=== PATIENT | female | born 1980 | race Caucasian/White ===

== ENCOUNTER → 2019-05-03 11:09 | Outpatient (CLI) | payer MEDICAID, SELFPAY ==
--- NOTE | 2019-05-03 11:27 | XR_ITS ---
XR abdomen min 2V HISTORY: ITS.REASON: pain ORDERING PHYSICIAN: Chanel Tripathi APRN PATIENT AGE: 38 years COMPARISON: None FINDINGS: Mild amount of retained colonic feces. No evidence of intestinal obstruction or free air. Mild levoscoliosis of the lumbar spine. No obvious renal calcifications. IMPRESSION: Mild amount of retained colonic feces otherwise negative
[2019-05-03 11:56] LABS: Basophils # 0.1 K/mm3 (0-0.2); Basophils % 1.3 % (0.1-2.0); Eosinophils # 0.1 K/mm3 (0.0-0.4); Eosinophils % 2.5 % (0.1-12.0); Hematocrit 41.2 % (37.0-47.0); Hemoglobin 12.8 g/dL (12.2-16.2); Lymphocytes # 1.4 K/mm3 (0.7-4.5); Lymphocytes % 32.6 % (10-50); Mean Corpuscular Hemoglobin 23.9 pg (27.0-31.2); Mean Corpuscular Volume 77.2 fl (81-99); Mean Platelet Volume 11.3 fl (7.4-10.4); Monocytes # 0.2 K/mm3 (0.1-1.0); Monocytes % 4.3 % (1.7-9.3); Neutrophils # 2.6 K/mm3 (1.8-7.8); Neutrophils % 59.3 % (37.0-80.0); Platelet Count 180 K/mm3 (142-424); Red Blood Count 5.34 M/mm3 (4.20-5.40); Red Cell Distribution Width 17.5 % (11.5-17.5); White Blood Count 4.3 K/mm3 (4.8-10.8)
[2019-05-03 12:34] LABS: Alanine Aminotransferase 24 U/L (12-78); Albumin Level 4.4 gm/dL (3.4-5.0); Albumin/Globulin Ratio 1.3 (1.1-1.8); Alkaline Phosphatase 55 U/L (46-116); Amylase 56 U/L (25-115); Anion Gap 11.9 mEq/L (5-15); Aspartate Amino Transferase 9 U/L (15-37); Bilirubin,Total 0.4 mg/dL (0.2-1.0); Blood Urea Nitrogen 12 mg/dL (7-18); C-Reactive Protein < 0.2 mg/dL (0.0-0.9); Carbon Dioxide 29 mmol/L (21.0-32.0); Chloride 101 mmol/L (98-107); Chol/HDL Ratio 3.6 (1-3.5); Cholesterol 182 mg/dL (140-200); Creatinine,Serum 0.96 mg/dL (0.55-1.02); Estimated Glomerular Filt Rate 65 ml/min (>60); GFR (African American) 78 ML/MIN (>60); Globulin 3.4 gm/dl (1.3-3.2); Glucose 88 mg/dL (74-106); HDL Cholesterol 51 mg/dL (29-89); LDL Cholesterol 113 mg/dL (0-130); Lipase 163 u/L (73-393); Potassium 3.9 mmoL/L (3.5-5.1); Sodium 138 mmol/L (136-145); T4 (Thyroxine) 7.1 ug/dl (4.7-13.3); Thyroid Stimulating Hormone 15.97 uIU/ml (0.358-3.740); Total Protein,Serum 7.8 gm/dL (6.4-8.2); Triglycerides 92 mg/dL (30-200); VLDL Cholesterol 18 mg/dL (0-40)
[2019-05-03 13:06] LABS: Erythrocyte Sedimentation Rate 5 mm/hr (0-20)
[2019-05-04 13:19] LABS: Vitamin B12 555 pg/mL (232-1245)
[2019-05-04 13:20] LABS: Folate 10.3 ng/mL (>3.0); Vitamin D 25 Hydroxy 15.9 ng/mL (30.0-100.0)
== END ==
PROVIDERS: Visit Provider Nurse Practitioner Family
DX: R11.2 Nausea with vomiting, unspecified (principal); R13.10 Dysphagia, unspecified; R52 Pain, unspecified; E55.9 Vitamin D deficiency, unspecified
CPT/HCPCS: 36415; 74019; 80053; 80061; 82150; 82607; 82652; 82746; 83690; 84436; 84443; 85025; 85651; 86140

== ENCOUNTER → 2019-05-26 08:56 | Outpatient (CLI) | payer MEDICAID, SELFPAY ==
--- NOTE | 2019-05-26 09:05 | FL_ITS ---
PROCEDURE: FL BARIUM SWALLOW CLINICAL INDICATION: dysphagia history of previous thyroidectomy 2016 COMPARISON: No exams were available for comparison TECHNIQUE: In the upright position the patient was observed to swallow barium in both the AP and lateral view. The cervical esophagus was examined under fluoroscopy with images obtained. The patient was then placed prone in the right anterior oblique position and was observed to swallow barium with Valsalva technique . FLUOROSCOPY TIME: 2 minutes 26 seconds, the dose is 28.50 mGy FINDINGS: Fluoroscopy prior to swallowing barium shows multiple too numerous to count surgical clips in the thyroid bed. Spot films of the cervical esophagus was swelling show no abnormal anterior or posterior indentation of the barium column. There is no significant degenerative change of the cervical spine. Otherwise esophageal motility was normal. There was a small sliding hiatal hernia but there was no significant GE reflux with the patient in supine position. IMPRESSION: Multiple surgical clips just anterior to the cervical esophagus which could possibly be a cause for symptoms of dysphagia particularly with solid foods but as mentioned there is no significant abnormal indentation of the cervical esophagus and a soft motility is essentially normal. Dictated by: Dr. Thang Jones MD 05/26/2019 11:17 Signed by: <Electronically signed by Dr. Thang Jones MD in [facility]> 05/26/2019 11:17
== END ==
PROVIDERS: PCP Emergency Medicine; Visit Provider Nurse Practitioner Family
DX: R13.10 Dysphagia, unspecified (principal)
CPT/HCPCS: 74220

== ENCOUNTER 2021-01-14 16:05 | Outpatient (RCR) | payer MEDICAID, SELFPAY ==
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
== END 2021-01-14 16:10 | disposition home or self-care (01) ==
LOC: PT 16:05
PROVIDERS: PCP Emergency Medicine; Visit Provider Emergency Medicine
DX: M54.9 Dorsalgia, unspecified (principal); M54.5 Low back pain
CPT/HCPCS: 97163

== ENCOUNTER 2022-06-01 12:29 | Emergency (ER) | payer MEDICAID, SELFPAY ==
[2022-06-01 14:49] VITALS: BP 0/0; PULSE 0; RESP 0; TEMP -17.7; TEMP 0
== END 2022-06-01 14:51 | disposition left against medical advice (07) ==
LOC: UTC 12:42
PROVIDERS: Emergency Provider Nurse Practitioner; PCP Emergency Medicine
DX: R51.9 Headache, unspecified (principal); R11.0 Nausea; R68.83 Chills (without fever); Z53.21 Procedure and treatment not carried out due to patient leaving prior to being seen by health care provider

== ENCOUNTER → 2022-06-04 11:56 | Outpatient (CLI) | payer MEDICAID, SELFPAY | PROVIDERS: PCP Emergency Medicine; Visit Provider Emergency Medicine | DX: U07.1 COVID-19 (principal) | CPT/HCPCS: C9803; U0003; U0005 ==

== ENCOUNTER 2023-10-07 19:15 | Inpatient (IN) | payer MEDICAID, SELFPAY ==
[2023-10-07 19:15] VITALS: BP 173/101; PULSE 70; RESP 20; TEMP 36.7; O2SAT 100; BMI 13.8
--- NOTE | 2023-10-07 19:17 | ECG_ITS ---
APPROVED REPORT Exam: Resting ECG HR:69 bpm ECG Measurements Heart Rate 69 AXES IL 184 P -74 QRSd 102 QRS 92 QT 435 T 69 QTc 454 Conclusion SINUS RHYTHM BORDERLINE RIGHT AXIS DEVIATION [QRS AXIS > 90] MODERATE T-WAVE ABNORMALITY, CONSIDER ANTERIOR ISCHEMIA [-0.1+ mV T-WAVE IN V3/V4] ABNORMAL ECG UNCONFIRMED REPORT Electronically signed by : Chilo Vasquez MD 10/09/2023 10:09:32
--- NOTE | 2023-10-07 19:23 | CT_ITS ---
PROCEDURE INFORMATION: Exam: CTA Chest With Contrast Exam date and time: 10/07/2023 8:28 PM Age: 42 years old Clinical indication: Pain; Chest pressure; Additional info: Left leg swelling, chest pain TECHNIQUE: Imaging protocol: Computed tomographic angiography of the chest with contrast. Exam focused on the arteries. 3D rendering (Not supervised by radiologist): MIP and/or 3D reconstructed images were created by the technologist. Radiation optimization: All CT scans at this facility use at least one of these dose optimization techniques: automated exposure control; mA and/or kV adjustment per patient size (includes targeted exams where dose is matched to clinical indication); or iterative reconstruction. Contrast material: ISOVUE; Contrast volume: 75 ml; Contrast route: INTRAVENOUS (IV); COMPARISON: CT ABDOMEN PELVIS W CON 10/07/2023 8:28 PM FINDINGS: Pulmonary arteries: Normal. No pulmonary emboli. Aorta: Unremarkable. No aortic aneurysm. No aortic dissection. Thyroid: Evidence of prior thyroidectomy. Lungs: Unremarkable. No consolidation. No masses. Pleural spaces: Unremarkable. No pneumothorax. No pleural effusion. Heart: Unremarkable. No cardiomegaly. No pericardial effusion. Lymph nodes: Unremarkable. No enlarged lymph nodes. Bones/joints: Mild dextroscoliosis of the thoracic spine. No vertebral body compression or acute fracture. Soft tissues: Unremarkable. IMPRESSION: No evidence of pulmonary embolus or other acute abnormality in the chest.
--- NOTE | 2023-10-07 19:24 | CT_ITS ---
PROCEDURE INFORMATION: Exam: CT Abdomen And Pelvis With Contrast Exam date and time: 10/07/2023 8:28 PM Age: 42 years old Clinical indication: Abdominal pain; Additional info: Rlq abd pain TECHNIQUE: Imaging protocol: Computed tomography of the abdomen and pelvis with contrast. Radiation optimization: All CT scans at this facility use at least one of these dose optimization techniques: automated exposure control; mA and/or kV adjustment per patient size (includes targeted exams where dose is matched to clinical indication); or iterative reconstruction. Contrast material: ISOVUE; Contrast volume: 75 ml; Contrast route: IV; COMPARISON: CR (ABD UPRIGHT, ABDOMEN, ABD UPRIGHT) 05/03/2019 11:30 AM FINDINGS: Liver: Focal fatty infiltration in the lateral segment of the left lobe of the liver. Liver is otherwise unremarkable. Gallbladder and bile ducts: Normal. No calcified stones. No ductal dilation. Pancreas: Diffuse peripancreatic fluid compatible with acute pancreatitis. Normal pancreatic enhancement. No loculated fluid collections. Spleen: Normal. No splenomegaly. Adrenal glands: Normal. No mass. Kidneys and ureters: Normal. No hydronephrosis. Stomach and bowel: Unremarkable. No obstruction. No mucosal thickening. Appendix: No evidence of appendicitis. Intraperitoneal space: No other significant free fluid in the abdomen or pelvis. No free air. Vasculature: Unremarkable. No abdominal aortic aneurysm. Lymph nodes: Unremarkable. No enlarged lymph nodes. Urinary bladder: Unremarkable as visualized. Reproductive: Unremarkable as visualized. Bones/joints: Moderate levoscoliosis of the thoracolumbar spine. No vertebral body compression or acute fracture. Soft tissues: Unremarkable. IMPRESSION: Uncomplicated acute pancreatitis
--- NOTE | 2023-10-07 19:25 | ED_ITS ---
Discharge Plan Disposition Patient Disposition: Admitted Prescriptions Prescriptions: No Action buprenorphine-naloxone 8-2 mg tablet, sublingual 1 tab SUBLINGUAL BID ergocalciferol (vitamin D2) 1,250 mcg (50,000 unit) capsule 50,000 unit PO QWEEK Qty: 14 3RF nicotine 21 mg/24 hr patch 24 hour 1 patch TRANSDERMA DAILY Qty: 28 0RF lidocaine 4 % adhesive patch,medicated 1 patch TOPICAL DAILY PRN (Reason: pain) Qty: 30 0RF Rx Instructions: may leave on for up to 12 hrs diclofenac sodium [Arthritis Pain (diclofenac)] 1 % gel 2 g TOPICAL QID Qty: 100 0RF Rx Instructions: apply to single elbow, wrist or hand; for hand includes palm/fingers/back of hand cholecalciferol (vitamin D3) 25 mcg (1,000 unit) capsule 25 mcg PO DAILY Qty: 90 3RF cholecalciferol (vitamin D3) 25 mcg (1,000 unit) tablet See Rx Instructions .ROUTE .COMPLEX Qty: 30 0RF Dose Instruction: TAKE ONE TABLET BY MOUTH ONCE A DAY Rx Instructions: TAKE ONE TABLET BY MOUTH ONCE A DAY patient needs an appt before anymore refills quetiapine 50 mg tablet See Rx Instructions .ROUTE .COMPLEX Qty: 60 0RF Dose Instruction: TAKE ONE TABLET BY MOUTH 2 TIMES A DAY Rx Instructions: TAKE ONE TABLET BY MOUTH 2 TIMES A DAY duloxetine 20 mg capsule,delayed release(DR/EC) See Rx Instructions .ROUTE .COMPLEX Qty: 30 0RF Dose Instruction: TAKE ONE CAPSULE BY MOUTH ONCE A DAY Rx Instructions: TAKE ONE CAPSULE BY MOUTH ONCE A DAY pantoprazole 40 mg tablet,delayed release (DR/EC) See Rx Instructions .ROUTE .COMPLEX Qty: 30 0RF Dose Instruction: TAKE ONE TABLET BY MOUTH ONCE A DAY Rx Instructions: TAKE ONE TABLET BY MOUTH ONCE A DAY levothyroxine 125 mcg tablet See Rx Instructions .ROUTE .COMPLEX Qty: 90 3RF Dose Instruction: TAKE ONE TABLET BY MOUTH ONCE A DAY Rx Instructions: TAKE ONE TABLET BY MOUTH ONCE A DAY Referrals Follow up/Referrals: Provider,Referral, [Referring] - See instructions Clinical Impressions Clinical Impression: Acute alcoholic pancreatitis, Chest pain, Abdominal pain, Cellulitis of left leg Discharge ED Provider: Sukhwinder Munguia General Adult HPI General Chief complaint: PAIN Stated complaint: CP Time Seen by Provider: 10/07/23 19:23 History of Present Illness HPI narrative: Patient is a 42-year-old presenting today with numerous complaints. Patient states he has been having chest pain has been ongoing for the last 13 hours unchanged located in substernal aspect of her chest radiating through to her back. Nonexertional no diaphoresis associated with this however she is short of breath. Additionally patient states has been having intermittent abdominal pain that severe right lower quadrant she has a history of having extensive surgery on the right lower quadrant including bowel resection appendectomy oophorectomy and salpingectomy that was a complication of a section in 2013 when she was having her twins. Additionally she states she is having significant urinary symptoms burning frequency urgency dysuria. She also states she has been having left lower leg swelling and erythema associated with the wound for the last 2 weeks. No history of DVT or PE. Lastly she has a known history of chronic HCV that has been untreated she is not sure if she still viremic but has not taken any direct acting antivirals for this treatment. She states that she got this from a tattoo in the past. She is unsure as to whether or not she has cirrhosis. Related Data Home Medications Medication Instructions Recorded Confirmed buprenorphine 8 mg-naloxone 2 mg 1 tab sublingual BID 12/30/20 12/30/20 sublingual tablet Previous Rx's Medication Instructions Recorded diclofenac sodium 1 % topical gel 2 g topical QID #100 grams 12/30/20 (Arthritis Pain (diclofenac)) ergocalciferol (vitamin D2) 1,250 50,000 unit PO QWEEK #14 caps 12/30/20 mcg (50,000 unit) capsule lidocaine 4 % topical patch 1 patch topical DAILY PRN pain #30 12/30/20 ea nicotine 21 mg/24 hr daily 1 patch transdermal DAILY #28 ea 12/30/20 transdermal patch cholecalciferol (vitamin D3) 25 25 mcg PO DAILY #90 caps 11/17/21 mcg (1,000 unit) capsule cholecalciferol (vitamin D3) 25 See Rx Instructions .Route 11/18/21 mcg (1,000 unit) tablet .COMPLEX #30 tabs duloxetine 20 mg capsule,delayed See Rx Instructions .Route 01/07/22 release .COMPLEX #30 caps quetiapine 50 mg tablet See Rx Instructions .Route 01/07/22 .COMPLEX #60 tabs pantoprazole 40 mg tablet,delayed See Rx Instructions .Route 06/01/22 release .COMPLEX #30 tabs levothyroxine 125 mcg tablet See Rx Instructions .Route 04/15/23 .COMPLEX #90 tabs Allergies Allergy/AdvReac Type Severity Reaction Status Date / Time codeine Allergy Mild jitters Verified 12/30/20 16:31 NSAIDS (Non-Steroidal Allergy Mild Hives Verified 12/30/20 16:31 Anti-Inflamma [facility] Disclaimer: The information contained in this section may have been updated after the p atient was seen, as this information can be updated by other users. Social History Smoking Status: Current every day smoker tobacco type: cigarettes packs per day: 1 alcohol intake: never substance use type: denies use current occupational status: unemployed Travel in the last 8 weeks: None household members: family ROS Obtained: Yes All systems reviewed & no additional complaints except as documented Physical Exam General General appearance: alert Chest Chest inspection: Present normal inspection and symmetric chest wall rise Respiratory Respiratory exam: Present normal lung sounds bilaterally; Absent respiratory distress Cardiovascular Cardiovascular exam: Present regular rate; Absent tachycardia Abdominal Exam Abdominal exam: Present soft and tenderness (Right lower quadrant tenderness palpation there is some rebound and guarding) Extremities Exam Extremities exam: Present other (There is a clotted wound on the anterior aspect of the left tibia with surrounding swelling and erythema and tenderness) Neurological Exam Neurological exam: Present alert and oriented X3 Medical Decision Making Brandan Inquiry Pt receiving controlled substance: No Vital Signs: 10/07/23 19:15 10/07/23 19:32 10/07/23 20:01 Temperature 98.1 F Temperature Source Oral Pulse Rate 61 52 L Pulse Rate [Right Brachial] 70 Respiratory Rate 20 12 Blood Pressure 160/142 H 167/89 H Blood Pressure [Right Arm] 173/101 H Blood Pressure Mean [Right Arm] 125 Blood Pressure Source [Right Arm] Automatic Cuff Blood Pressure Position [Right Arm] Supine 02 Sat by Pulse Oximetry 100 100 95 Oxygen Delivery Method Room Air Lab Data Lab results reviewed: Yes I reviewed the patient's lab results. Lab Results 10/07/23 19:26: PT 11.8, INR 1.10, D-Dimer 0.65 H, Sodium 134 L, Potassium 3.8, Chloride 96 L, Carbon Dioxide 23, Anion Gap 18.8 H, BUN 4 L, Creatinine 0.50 L, Estimated Creat Clear 128, Estimated GFR 135, Est GFR ( Amer) 163, G lucose 183 H, Calcium 9.0, Total Bilirubin 1.2, AST 86 H, ALT 59, Alkaline Phosphatase 126, Troponin I 0.02, Total Protein 8.0, Albumin 4.9, Globulin 3.1, Albumin/Globulin Ratio 1.6, Lipase 3855 H, Serum HCG, Qual Negative 10/07/23 20:15: WBC 9.0, RBC 4.88, Hgb 15.5, Hct 46.3, MCV 94.9, MCH 31.8 H, MCHC 33.5, RDW 17.3, Plt Count 173, MPV 9.4, Neut % (Auto) 93.6 H, Lymph % (Auto) 2.9 L, [place] % (Auto) 2.6, Eos % (Auto) 0.7, Baso % (Auto) 0.2, Neut # (Auto) 8.4 H, Lymph # (Auto) 0.3 L, Dewitt # (Auto) 0.2, Eos # (Auto) 0.1, Baso # (Auto) 0.0, Total Counted 100, Neutrophils % (Manual) 98 H, Lymphocytes % (Manual) 1 L, Monocytes % (Manual) 1 L, Platelet Estimate Normal, RBC Morphology Normal 10/07/23 21:18: Urine Color Yellow, Urine Appearance Clear, Urine pH 7.5, Ur Specific [place] 1.010, Urine Protein Negative, Urine Glucose (UA) 1+, Urine Ketones Trace, Urine Blood Trace-i, Urine Nitrate Positive, Urine Bilirubin Negative, Urine Urobilinogen 0.2, Ur Leukocyte Esterase Negative 10/07/23 20:15 10/07/23 19:26 Orders (Tests/Meds): ED MEDICATIONS Generic Name Dose Route Start Last Admin Trade Name Freq PRN Reason Stop Dose Admin Cephalexin HCl 500 mg 10/07/23 21:37 Cephalexin 500mg Capsule PO 10/07/23 21:38 ONCE ONE Sodium Chloride 10 ml 10/07/23 20:33 10/07/23 20:34 Sodium Chloride 0.9% 10ml Syr (Rad Only) IV 11/06/23 20:32 10 ml NEEDED PRN Administration Maintain IV Site Discontinued Medications Generic Name Dose Route Start Last Admin Trade Name Freq PRN Reason Stop Dose Admin Lactated Ringer's 1,000 mls @ 999 mls/hr 10/07/23 19:30 10/07/23 20:16 Lactated Ringer's 1000 Ml Bag IV 10/07/23 20:30 999 mls/hr .Q1H1M VU Administration Iopamidol 75 ml 10/07/23 20:33 10/07/23 20:33 Iopamidol-370 (76%);100ml Bottle IV 10/07/23 20:34 75 ml ONCE ONE Administration Morphine Sulfate 4 mg 10/07/23 19:23 10/07/23 20:16 Morphine 4mg/Ml Syringe IV 10/07/23 19:24 4 mg ONCE ONE Administration Ondansetron HCl 4 mg 10/07/23 19:23 10/07/23 20:15 Ondansetron 4mg/2ml Vial IV 10/07/23 19:24 4 mg ONCE ONE Administration ORDERS Category Date Time Status CT abdomen pelvis w con Stat Cat Scan 10/07/23 19:[address] angio chest PE protocol Stat Cat Scan 10/07/23 19:23 Completed CBC w/Auto Diff [Complete Blood Count Auto Diff] Stat Lab 10/07/23 20:15 Completed CMP [Comprehensive Metabolic Panel] Stat Lab 10/07/23 19:26 Completed D-Dimer Stat Lab 10/07/23 19:26 Completed HCG Qualitative, Serum Stat Lab 10/07/23 19:26 Completed HCV RNA PCR, Quant Stat Lab 10/07/23 20:42 Received Lipase Stat Lab 10/07/23 19:26 Completed PT INR [Prothrombin Time INR] Stat Lab 10/07/23 19:26 Completed Trop I [Troponin I] Stat Lab 10/07/23 19:26 Completed Troponin I Q3H Lab 10/07/23 22:30 Ordered Troponin I Q3H Lab 10/08/23 01:30 Ordered UA [Urinalysis and Microscopic] Stat Lab 10/07/23 21:18 Results Medical Decision Narrative: Patient is a 42-year-old presenting today with numerous complaints including chest pain shortness of breath abdominal pain urinary symptoms lower extremity swelling diarrhea and has a history of chronically untreated viremia. Differential is very broad including myocardial injury myocardial infarction pneumonia pulmonary embolism abdominal pathology such as bowel obstruction urinary tract infection DVT PE etc. Will get a CT PE and and CT of the abdomen pelvis as well as basic blood test a single troponin will be used to rule out acute myocardial infarction or ACS given the duration of symptoms. Regarding her left lower extremity erythema and swelling this is consistent with ce llulitis unlikely to be a DVT will cover her with antibiotics if everything else unremarkable. HCVRNA has been sent and we will follow-up on this to see the patient is still chronically viremic and needs treatment. EKG performed which I personally interpreted shows a ventricular rate of 69 normal sinus rhythm no acute ischemic changes noted however there are some anterior T wave inversions which are nonspecific no ST elevations or depressions there is normal axis nonspecific emergency EKG. Reassessment 9:38 PM patient is very broad workup yielded a lipase over 3000 CT scans performed which also did not show any alternative explanation other than uncomplicated pancreatitis. This explains the vast majority the patient's symptoms. She was given a dose of Keflex for her lower extremity cellulitis as well. I went and discussed this further with the patient and she subsequently admitted to drinking a pint of fireball liquor on a daily basis over the last year up until 2 days ago when she started feeling sick. She currently has a CIWA score of 0 no evidence of any withdrawal at the moment. However this is a concern. She will be admitted for pain control bowel rest IV fluids etc. I spoke with Jozef with hospital medicine who agreed to admit the patient. Critical Care Critical Care Time Critical Care Time: No
[2023-10-07 19:32] VITALS: BP 160/142; PULSE 61; O2SAT 100
[2023-10-07 19:48] LABS: Prothrombin Time 11.8 seconds (10.1-12.5)
[2023-10-07 19:57] LABS: Chloride 96 mmol/L (98-107); Potassium 3.8 mmoL/L (3.5-5.1); Sodium 134 mmol/L (136-145)
[2023-10-07 20:00] LABS: Alanine Aminotransferase 59 U/L (12-78); Albumin Level 4.9 g/dl (3.5-5.0); Albumin/Globulin Ratio 1.6 (1.1-1.8); Alkaline Phosphatase 126 U/L (38-126); Anion Gap 18.8 mEq/L (5-15); Aspartate Amino Transferase 86 U/L (14-36); Bilirubin,Total 1.2 mg/dl (0.2-1.3); Blood Urea Nitrogen 4 mg/dl (7-17); Carbon Dioxide 23 mmol/L (22.0-30.0); Creatinine Clearance Estimated 128 mL/min (50-200); Estimated Glomerular Filt Rate 135 ml/min (>60); GFR (African American) 163 ML/MIN (>60); Globulin 3.1 g/dL (1.3-3.2)
[2023-10-07 20:01] VITALS: BP 167/89; PULSE 52; RESP 12; O2SAT 95
[2023-10-07 20:01] LABS: Glucose 183 mg/dl (74-100)
[2023-10-07 20:12] LABS: Troponin I 0.02 ng/ml (0.00-0.034)
[2023-10-07] MEDS: ONDANSETRON 4MG/2ML VIAL 4 MG IV (20:15)
[2023-10-07] MEDS: LACTATED RINGERS 1000ML 1,000 ML 999 ML IV (20:16)
[2023-10-07] MEDS: MORPHINE 4MG/ML SYRINGE 4 MG IV ×2 (20:16→23:06)
[2023-10-07 20:20] LABS: Basophils % 0.2 % (0.1-2.0); Eosinophils # 0.1 K/mm3 (0.0-0.4); Eosinophils % 0.7 % (0.1-12.0); Hematocrit 46.3 % (37.0-47.0); Hemoglobin 15.5 g/dL (12.2-16.2); Lymphocytes # 0.3 K/mm3 (0.7-4.5); Lymphocytes % 2.9 % (10-50); Mean Corpuscular HGB Conc 33.5 g/dL (31.8-35.4); Mean Corpuscular Hemoglobin 31.8 pg (27.0-31.2); Mean Corpuscular Volume 94.9 fl (81-99); Mean Platelet Volume 9.4 fl (7.4-10.4); Monocytes # 0.2 K/mm3 (0.1-1.0); Monocytes % 2.6 % (1.7-9.3); Neutrophils # 8.4 K/mm3 (1.8-7.8); Neutrophils % 93.6 % (37.0-80.0); Platelet Count 173 K/mm3 (142-424); Red Blood Count 4.88 M/mm3 (4.20-5.40); Red Cell Distribution Width 17.3 % (11.5-17.5)
[2023-10-07 20:20] LABS: HCG Qualitative, Serum Negative (Negative)
[2023-10-07 20:21] LABS: MANUAL DIFFERENTIAL MANUAL DIFFERENTIAL (MANUAL DIFF)
[2023-10-07 20:24] LABS: Lipase 3855 U/L (23-300)
--- NOTE | 2023-10-07 20:25 | PC.NURSE ---
Dr Munguia notified of critical lipase [id number]
[2023-10-07 20:29] LABS: Lymphocytes % 1 % (10-50); Monocytes % 1 % (2-9); Neutrophils % 98 % (42-76); Platelet Estimate Normal; RBC Morphology Normal; Total Cells Counted 100
[2023-10-07] MEDS: IOPAMIDOL-370 (76%);100ML BOTTLE 75 ML IV (20:33)
--- NOTE | 2023-10-07 20:33 | PC.NURSE ---
pt to radiology
[2023-10-07] MEDS: SODIUM CHLORIDE 0.9% 10ML SYR (RAD ONLY) 10 ML IV (20:34)
--- NOTE | 2023-10-07 20:35 | PC.NURSE ---
pt back from radiology
[2023-10-07 21:10] LABS: D-Dimer 0.65 ug/mL (0.0-0.5)
[2023-10-07 21:27] LABS: Microscopic, Urine URINE MICROSCOPIC (MICROSCOPIC)
[2023-10-07 21:28] LABS: Appearance,Urine CLEAR (Clear); Bilirubin,Urine Negative (Negative); Blood, Urine TRACE-I (Negative); Color,Urine YELLOW (Yellow); Glucose,Urine (UA) 1+ (Negative); Ketones,Urine TRACE (Negative); Leukocyte Esterase,Urine Negative (Negative); Nitrate,Urine POSITIVE (Negative); PH,Urine 7.5 (5.0-8.5); Protein,Urine Negative (Negative); Urobilinogen,Urine 0.2 EU/dl (0.2)
--- NOTE | 2023-10-07 21:37 | PC.NURSE ---
on phone with VIDA Boggs. [facility] accepted admit, House notified of Admission at this time.
--- NOTE | 2023-10-07 21:39 | P.HP_ITS ---
History of Present Illness *Admission Date: 10/07/23 *Reason for visit:: abd pain *History of present illness: This is a 42-year-old female PMHX of hypothyroidism, heavy daily drinker, chronic Hep C, presented to ED c/o abd pain, nauseas and vomit. Initially patient described also chest pain has been ongoing for the last 13 hours unchanged located in substernal aspect of her chest radiating through to her back. Nonexertional no diaphoresis associated with this however she is short of breath. Additionally patient states has been having intermittent abdominal pain that severe right lower quadrant she has a history of having extensive surgery on the right lower quadrant including bowel resection appendectomy oophorectomy and salpingectomy that was a complication of a section in 2013 when she was having her twins. Additionally she states she is having significant urinary symptoms burning frequency urgency dysuria. She also states she has been having left lower leg swelling and erythema associated with the wound for the last 2 weeks. No history of DVT or PE. Admitted for further treatment and management [facility] Disclaimer: The information contained in this section may have been updated after the patient was seen, as this information can be updated by other users. Surgical History (Updated 10/07/23 @ 22:32 by Belén Lopez RN) History of appendectomy Family History (Updated 10/07/23 @ 22:34 by Belén Lopez RN) Other Family history of diabetes mellitus Family history of hypertension Family history of hypothyroidism Social History (Updated 10/07/23 @ 22:33 by Belén Lopez RN) Smoking Status: Current every day smoker tobacco type: cigarettes packs per day: 1 alcohol intake: never substance use type: denies use current occupational status: unemployed Travel in the last 8 weeks: None household members: family Review of Systems Review of Systems Review of systems:: pertinent systems reviewed and negative unless documented below Meds Home Medications and Allergies Home Medications Medication Instructions Recorded Confirmed Type buprenorphine 8 mg-naloxone 2 mg 1 tab sublingual BID 12/30/20 10/07/23 History sublingual tablet ergocalciferol (vitamin D2) 1,250 50,000 unit PO QWEEK #14 caps 12/30/20 10/08/23 Rx mcg (50,000 unit) capsule cholecalciferol (vitamin D3) 25 25 mcg PO DAILY #90 caps 11/17/21 10/07/23 Rx mcg (1,000 unit) capsule diclofenac sodium 1 % topical gel 2 g topical QID PRN Pain 10/07/23 10/07/23 History (Arthritis Pain (diclofenac)) duloxetine 20 mg capsule,delayed 20 mg PO DAILY 10/08/23 10/08/23 History release levothyroxine 125 mcg tablet 125 mcg PO AM 10/08/23 10/08/23 History pantoprazole 40 mg tablet,delayed 40 mg PO DAILY 10/08/23 10/08/23 History release quetiapine 50 mg tablet 100 mg PO HS 10/08/23 10/08/23 History New Prescriptions to Start Prescriptions: Allergies Allergy/AdvReac Type Severity Reaction Status Date / Time codeine Allergy Mild jitters Verified 12/30/20 16:31 NSAIDS (Non-Steroidal Allergy Mild Hives Verified 12/30/20 16:31 Anti-Inflamma Exam Data for Last 24 hours Vital signs and Labs for Last 24 Hours: Temp Pulse Resp BP Pulse Ox O2 Del Method 98.1 F 52 L 12 167/89 H 95 Room Air 10/07/23 19:15 10/07/23 20:01 10/07/23 20:01 10/07/23 20:01 10/07/23 20:01 10/07/23 19:15 Laboratory Results - last 24 hr 10/07/23 19:26: PT 11.8, INR 1.10, D-Dimer 0.65 H, Sodium 134 L, Potassium 3.8, Chloride 96 L, Carbon Dioxide 23, Anion Gap 18.8 H, BUN 4 L, Creatinine 0.50 L, Estimated Creat Clear 128, Estimated GFR 135, Est GFR ( Amer) 163, Glucose 183 H, Calcium 9.0, Total Bilirubin 1.2, AST 86 H, ALT 59, Alkaline Phosphatase 126, Troponin I 0.02, Total Protein 8.0, Albumin 4.9, Globulin 3.1, Albumin/Globulin Ratio 1.6, Lipase 3855 H, Serum HCG, Qual Negative 10/07/23 20:15: WBC 9.0, RBC 4.88, Hgb 15.5, Hct 46.3, MCV 94.9, MCH 31.8 H, MCHC 33.5, RDW 17.3, Plt Count 173, MPV 9.4, Neut % (Auto) 93.6 H, Lymph % (Auto) 2.9 L, [place] % (Auto) 2.6, Eos % (Auto) 0.7, Baso % (Auto) 0.2, Neut # (Auto) 8.4 H, Lymph # (Auto) 0.3 L, [place] # (Auto) 0.2, Eos # (Auto) 0.1, Baso # (Auto) 0.0, Total Counted 100, Neutrophils % (Manual) 98 H, Lymphocytes % (Manual) 1 L, Monocytes % (Manual) 1 L, Platelet Estimate Normal, RBC Morphology Normal 10/07/23 21:18: Urine Color Yellow, Urine Appearance Clear, Urine pH 7.5, Ur Specific [place] 1.010, Urine Protein Negative, Urine Glucose (UA) 1+, Urine Ketones Trace, Urine Blood Trace-i, Urine Nitrate Positive, Urine Bilirubin Negative, Urine Urobilinogen 0.2, Ur Leukocyte Esterase Negative I & O for Last 24 hours: Intake & Output 10/04/23 10/05/23 10/06/23 10/07/23 23:59 23:59 23:59 23:59 Weight 55.792 kg Constitutional Constitutional: moderate distress, cachectic and cooperative *Routine HEENT Exam Head: Present normocephalic and atraumatic Eye: Present EOMI, PERRL and normal accommodation ENT: Present mucous membranes dry *Routine Neck Exam Neck: Present supple, full ROM and trachea midline *Routine Respiratory Exam Respiratory: Present normal respiratory effort, able to speak in complete sentences and symmetric chest movement; Absent respiratory distress *Routine Cardiovascular Exam Cardiovascular: Present RRR, Normal S1, Normal S2 and tachycardia *Routine Abdominal Exam Abdominal: Present soft, normoactive bowel sounds, tenderness, distended and guarding *Routine Rectal Exam Rectal:: deferred *Routine Genitalia Exam Genitalia:: deferred *Routine Extremities Exam Extremities: Present edema, full ROM, pulses intact and joint swelling (left ankle ); Absent cyanosis or clubbing *Routine Skin Exam Skin: Present erythema, dry and warm *Routine Neurological Exam Neurological: Present alert, oriented X3, normal reflexes, moving all extremities and normal speech Routine Psychiatric Exam Psychiatric: Present normal thought process, cooperative, good judgment and anxious H&P: Result Imaging and Cardiology CT scan - abdomen: Status: image reviewed by me, Preliminary report and final report EKG: Status: image reviewed by me and Preliminary report CT scan - chest: Status: image reviewed by me, Preliminary report and final report ankle xray : Status: image reviewed by me, Preliminary report and final report Assessment and Plan *Assessment and plan (1) Acute alcoholic pancreatitis: Status: Acute Qualifiers: Acute pancreatitis complication: unspecified Qualified Code(s): K85.20 - Alcohol induced acute pancreatitis without necrosis or infection Category: Medical Code(s): K85.20 - Alcohol induced acute pancreatitis without necrosis or infection (2) UTI (urinary tract infection): Status: Acute Qualifiers: Hematuria presence: without hematuria Urinary tract infection type: site unspecified Qualified Code(s): N39.0 - Urinary tract infection, site not specified Category: Medical Code(s): N39.0 - Urinary tract infection, site not specified (3) Chest pain: Status: Acute Qualifiers: Chest pain type: unspecified Qualified Code(s): R07.9 - Chest pain, unspecified Category: Medical Code(s): R07.9 - Chest pain, unspecified (4) Cellulitis of left leg: Status: Acute Category: Medical Code(s): L03.116 - Cellulitis of left lower limb (5) Hypothyroidism (acquired): Problem Comment: Secondary to radioactive iodine for hyperthyroidism Status: Acute Category: Medical Code(s): E03.9 - Hypothyroidism, unspecified (6) Ankle pain, left: Status: Acute Qualifiers: Chronicity: acute Qualified Code(s): M25.572 - Pain in left ankle and joints of left foot Category: Medical Code(s): M25.572 - Pain in left ankle and joints of left foot (7) Alcohol abuse: Status: Acute Category: Social Hx Code(s): F10.10 - Alcohol abuse, uncomplicated Plan 42-year-old female PMHX of hypothyroidism, heavy daily drinker, chronic Hep C, presented to ED c/o abd pain, nauseas and vomit. on arrival patient underwent on extensive work up. Including CTA of chest that ruled out PEs and any cardiac acute conditions. serial troponin and EKG negative. She also had a. CT of the pelvis and abdomen there is shows acute uncomplicated pancreatitis. Elevated lipase. UA was collected, to rule urinary tract infection. X-rays of the left ankle was obtained to rule out any fracture. Findings were discussed with the ER doctor for admission. Plan as follows: -Abdominal pain secondary to acute alcoholic pancreatitis: Admit patient to medical surgical. Dispo MedSurg Surgical consult. Appreciate their insight. Start Zosyn 4.5 g every 8h Zofran and Phenergan as needed for nausea N.p.o. may advance diet as tolerated Pain management. Morphine as needed for severe pain Repeat a monitor labs in the morning -Suspected urinary tract infection: UA showed nitrate positive, with dysuria symptoms UA culture pending -Chest pain, more likely refractory from acute pancreatitis: ACS ruled out. Troponin negative EKG negative CTA of the chest was reviewed. Negative color television console monitor Monitor for chest pain. Vital signs per unit -History of fall at home with left ankle swelling: Was initially treated for cellulitis of the left leg Continues in antibiotic treatment X-ray was obtained negative for acute fracture Pain management as well -History of alcohol abuse currently heavy drinking: Patient interested in detox program. Will refer case coordinator for further assistance CIWA Hypothyroidism Resume Synthroid 125 Lovenox for DVT prophylaxis. On Protonix for GI bleed protection Full code
[2023-10-07] MEDS: cephALEXin 500MG CAPSULE 500 MG PO (21:41)
--- NOTE | 2023-10-07 21:50 | PC.NURSE ---
report given to SHELBY Harris on second floor.
[2023-10-07 21:53] LABS: Bacteria,Urine 3+ /lpf; RBC,Urine Occasional #/hpf (0-3); Squamous Epithelial Cell,Urine Occasional #/hpf (0-5)
[2023-10-07 22:04] VITALS: BP 160/78; PULSE 78; RESP 18; TEMP 37.1; O2SAT 100
[2023-10-07 22:37] VITALS: BP 161/92; PULSE 57; RESP 18; TEMP 37.1; O2SAT 100; BMI 13.8
--- NOTE | 2023-10-07 22:39 | XR_ITS ---
PROCEDURE INFORMATION: Exam: XR Left Ankle Exam date and time: 10/07/2023 11:12 PM Age: 42 years old Clinical indication: Pain; Ankle; Left; Additional info: Pain and swollen TECHNIQUE: Imaging protocol: Radiologic exam of the left ankle. Views: 1 or 2 views. COMPARISON: No relevant prior studies available. FINDINGS: Bones/joints: Osseous alignment is normal. No acute fracture. No significant arthritic change. Soft tissues: Moderate diffuse soft tissue swelling about the ankle IMPRESSION: Soft tissue swelling. No osseous abnormality.
[2023-10-07 22:57] LABS: Troponin I < 0.01 ng/ml (0.00-0.034)
--- NOTE | 2023-10-07 22:59 | XR_ITS ---
PROCEDURE INFORMATION: Exam: XR Left Foot Exam date and time: 10/07/2023 11:19 PM Age: 42 years old Clinical indication: Pain; Foot; Left; Additional info: Swelling TECHNIQUE: Imaging protocol: Radiologic exam of the left foot. Views: 3 or more views. COMPARISON: CR XR ANKLE LT 2V 10/07/2023 11:12 PM FINDINGS: Bones/joints: Normal. Soft tissues: Normal. IMPRESSION: No acute findings.
[2023-10-07 23:05] LABS: Magnesium 1.3 mg/dl (1.6-2.3); Phosphorous 3.4 mg/dl (2.5-4.5)
[2023-10-07] MEDS: 0.9 % SODIUM CHLORIDE 1000ML 1,000 ML 50 ML IV (23:07)
[2023-10-07 23:19] LABS: Activated Partial Thrombo Time 22.2 seconds (22.8-30.6)
[2023-10-07] MEDS: PIPERACILLIN/TAZO 4.5 GM in 0.9 % SODIUM CHLORIDE 100 ML IV (23:40)
[2023-10-07] MEDS: PROMETHAZINE HCL 25MG/ML 1ML VIAL 25 MG IV (23:40)
[2023-10-08] MEDS: ONDANSETRON 4MG/2ML VIAL 4 MG IV ×3 (01:07→16:59)
[2023-10-08 02:04] LABS: Troponin I < 0.01 ng/ml (0.00-0.034)
[2023-10-08 03:40] LABS: Amphetamine/Metha Screen,Urine Negative ng/ml (<1000); Barbiturates Screen,Urine Negative ng/ml (<200); Benzodiazepines Screen,Urine Negative ng/ml (<200); Cannabinoid Screen,Urine Negative ng/ml (<50); Cocaine Screen,Urine Negative ng/ml (<300); Methadone Screen,Urine Negative ng/ml (<300); Opiate Screen,Urine Positive ng/ml (<300); Phencyclidine Screen,Urine Negative ng/ml (<25)
[2023-10-08] MEDS: PROMETHAZINE HCL 25MG/ML 1ML VIAL 25 MG IV (03:48)
[2023-10-08] MEDS: MORPHINE 4MG/ML SYRINGE 4 MG IV ×5 (03:48→21:38)
[2023-10-08 04:00] VITALS: BP 120/94; PULSE 72; RESP 18; TEMP 36.9; O2SAT 98; BMI 17.1
--- NOTE | 2023-10-08 06:48 | EXP.SURG.CON ---
History of Present Illness *Admission Date: 10/07/23 *Reason for visit:: Acute pancreatitis *History of present illness: Patient is a 42-year-old female from [facility] who presented to the emergency department in the evening of 10/07/2023 with several complaints. She has a history of hypothyroidism, heavy daily alcohol consumption, chronic hepatitis C (untreated). She had some nausea and vomiting as well as substernal chest pain with and nonexertional diaphoresis. Patient does describe intermittent abdominal pain for some time in the right lower quadrant. She had apparently undergone extensive surgery on the right lower quadrant including bowel resection, oophorectomy with salpingectomy. She also describes symptoms of dysuria. Evaluation in the emergency department revealed AST of 86 and lipase of [address]855. [address] scan revealed findings of uncomplicated acute pancreatitis . She was admitted for inpatient management and surgical consultation was obtained. [facility] Disclaimer: The information contained in this section may have been updated after the patient was seen, as this information can be updated by other users. Surgical History (Updated 10/07/23 @ 22:32 by Belén Lopez RN) History of appendectomy Family History (Updated 10/07/23 @ 22:34 by Belén Lopez RN) Family history of diabetes mellitus Family history of hypertension Family history of hypothyroidism Social History (Updated 10/07/23 @ 22:33 by Belén Lopez RN) Smoking Status: Current every day smoker tobacco type: cigarettes packs per day: 1 alcohol intake: never substance use type: denies use current occupational status: unemployed Travel in the last 8 weeks: None household members: family Meds Home Medications and Allergies Home Medications Medication Instructions Recorded Confirmed Type buprenorphine 8 mg-naloxone 2 mg 1 tab sublingual BID 12/30/20 10/07/23 History sublingual tablet ergocalciferol (vitamin D2) 1,250 50,000 unit PO QWEEK #14 caps 12/30/20 10/08/23 Rx mcg (50,000 unit) capsule cholecalciferol (vitamin D3) 25 25 mcg PO DAILY #90 caps 11/17/21 10/07/23 Rx mcg (1,000 unit) capsule diclofenac sodium 1 % topical gel 2 g topical QID PRN Pain 10/07/23 10/07/23 History (Arthritis Pain (diclofenac)) duloxetine 20 mg capsule,delayed 20 mg PO DAILY 10/08/23 10/08/23 History release levothyroxine 125 mcg tablet 125 mcg PO AM 10/08/23 10/08/23 History pantoprazole 40 mg tablet,delayed 40 mg PO DAILY 10/08/23 10/08/23 History release quetiapine 50 mg tablet 100 mg PO HS 10/08/23 10/08/23 History New Prescriptions to Start Prescriptions: Allergies Allergy/AdvReac Type Severity Reaction Status Date / Time codeine Allergy Mild jitters Verified 12/30/20 16:31 NSAIDS (Non-Steroidal Allergy Mild Hives Verified 12/30/20 16:31 Anti-Inflamma Exam (Inpt) Vital signs and Labs for Last 24 Hours: Temp Pulse Resp BP Pulse Ox O2 Del Method 98.4 F 72 18 120/94 H 98 Room Air 10/08/23 04:00 10/08/23 04:00 10/08/23 04:00 10/08/23 04:00 10/08/23 04:00 10/08/23 05:00 Laboratory Results - last 24 hr 10/07/23 19:26: PT 11.8, INR 1.10, APTT 22.2 L, D-Dimer 0.65 H, Sodium 134 L, Potassium 3.8, Chloride 96 L, Carbon Dioxide 23, Anion Gap 18.8 H, BUN 4 L, Creatinine 0.50 L, Estimated Creat Clear 128, Estimated GFR 135, Est GFR ( Amer) 163, Glucose 183 H, Calcium 9.0, Total Bilirubin 1.2, AST 86 H, ALT 59, Alkaline Phosphatase 126, Troponin I 0.02, Total Protein 8.0, Albumin 4.9, Globulin 3.1, Albumin/Globulin Ratio 1.6, Lipase 3855 H, Serum HCG, Qual Negative 10/07/23 20:15: WBC 9.0, RBC 4.88, Hgb 15.5, Hct 46.3, MCV 94.9, MCH 31.8 H, MCHC 33.5, RDW 17.3, Plt Count 173, MPV 9.4, Neut % (Auto) 93.6 H, Lymph % (Auto) 2.9 L, [place] % (Auto) 2.6, Eos % (Auto) 0.7, Baso % (Auto) 0.2, Neut # (Auto) 8.4 H, Lymph # (Auto) 0.3 L, [place] # (Auto) 0.2, Eos # (Auto) 0.1, Baso # (Auto) 0.0, Total Counted 100, Neutrophils % (Manual) 98 H, Lymphocytes % (Manual) 1 L, Monocytes % (Manual) 1 L, Platelet Estimate Normal, RBC Morphology Normal 10/07/23 21:18: Urine Color Yellow, Urine Appearance Clear, Urine pH 7.5, Ur Specific [place] 1.010, Urine Protein Negative, Urine Glucose (UA) 1+, Urine Ketones Trace, Urine Blood Trace-i, Urine Nitrate Positive, Urine Bilirubin Negative, Urine Urobilinogen 0.2, Ur Leukocyte Esterase Negative, Urine RBC Occasional, Urine WBC 3-5, Ur Squamous Epith Cells Occasional, Urine Bacteria 3+, Urine Opiates Screen Positive H, Urine Methadone Screen Negative, Ur Barbituates Screen Negative, Ur Phencyclidine Scrn Negative, Ur Amphetamines Screen Negative, U Benzodiazepines Scrn Negative, Urine Cocaine Screen Negative, U Marijuana (THC) Screen Negative 10/07/23 22:25: Troponin I < 0.01 10/07/23 22:27: Phosphorus 3.4, Magnesium 1.3 L 10/08/23 01:40: Troponin I < 0.01 I & O for Labs for Last 24 Hours: Intake & Output 10/05/23 10/06/23 10/07/23 10/08/23 11:59 11:59 11:59 11:59 Output Total 0 / 0 Balance 0 / 0 Weight 152 lb 3 oz Comments:: Mild abdominal tenderness mostly in the mid upper abdomen without guarding or rebound. Results Labs 10/08/23 06:33 10/08/23 06:33 Labs: Laboratory Results - last 24 hr 10/07/23 19:26: PT 11.8, INR 1.10, APTT 22.2 L, D-Dimer 0.65 H, Sodium 134 L, Potassium 3.8, Chloride 96 L, Carbon Dioxide 23, Anion Gap 18.8 H, BUN 4 L, Creatinine 0.50 L, Estimated Creat Clear 128, Estimated GFR 135, Est GFR ( Amer) 163, Glucose 183 H, Calcium 9.0, Total Bilirubin 1.2, AST 86 H, ALT 59, Alkaline Phosphatase 126, Troponin I 0.02, Total Protein 8.0, Albumin 4.9, Globulin 3.1, Albumin/Globulin Ratio 1.6, Lipase 3855 H, Serum HCG, Qual Negative 10/07/23 20:15: WBC 9.0, RBC 4.88, Hgb 15.5, Hct 46.3, MCV 94.9, MCH 31.8 H, MCHC 33.5, RDW 17.3, Plt Count 173, MPV 9.4, Neut % (Auto) 93.6 H, Lymph % (Auto) 2.9 L, [place] % (Auto) 2.6, Eos % (Auto) 0.7, Baso % (Auto) 0.2, Neut # (Auto) 8.4 H, Lymph # (Auto) 0.3 L, [place] # (Auto) 0.2, Eos # (Auto) 0.1, Baso # (Auto) 0.0, Total Counted 100, Neutrophils % (Manual) 98 H, Lymphocytes % (Manual) 1 L, Monocytes % (Manual) 1 L, Platelet Estimate Normal, RBC Morphology Normal 10/07/23 21:18: Urine Color Yellow, Urine Appearance Clear, Urine pH 7.5, Ur Specific [place] 1.010, Urine Protein Negative, Urine Glucose (UA) 1+, Urine Ketones Trace, Urine Blood Trace-i, Urine Nitrate Positive, Urine Bilirubin Negative, Urine Urobilinogen 0.2, Ur Leukocyte Esterase Negative, Urine RBC Occasional, Urine WBC 3-5, Ur Squamous Epith Cells Occasional, Urine Bacteria 3+, Urine Opiates Screen Positive H, Urine Methadone Screen Negative, Ur Barbituates Screen Negative, Ur Phencyclidine Scrn Negative, Ur Amphetamines Screen Negative, U Benzodiazepines Scrn Negative, Urine Cocaine Screen Negative, U Marijuana (THC) Screen Negative 10/07/23 22:25: Troponin I < 0.01 10/07/23 22:27: Phosphorus 3.4, Magnesium 1.3 L 10/08/23 01:40: Troponin I < 0.01 Assessment and Plan *Assessment and plan (1) Acute alcoholic pancreatitis: Status: Acute Qualifiers: Acute pancreatitis complication: unspecified Qualified Code(s): K85.20 - Alcohol induced acute pancreatitis without necrosis or infection Category: Medical Code(s): K85.20 - Alcohol induced acute pancreatitis without necrosis or infection Plan Patient has apparent acute alcoholic pancreatitis. No surgical intervention or recommendations at this time. May benefit from gastroenterology input.
[2023-10-08 07:04] LABS: Basophils % 0.2 % (0.1-2.0); Eosinophils # 0.1 K/mm3 (0.0-0.4); Eosinophils % 0.7 % (0.1-12.0); Hematocrit 45.3 % (37.0-47.0); Hemoglobin 15.2 g/dL (12.2-16.2); Lymphocytes # 0.5 K/mm3 (0.7-4.5); Lymphocytes % 4.3 % (10-50); Mean Corpuscular HGB Conc 33.5 g/dL (31.8-35.4); Mean Corpuscular Hemoglobin 31.7 pg (27.0-31.2); Mean Corpuscular Volume 94.6 fl (81-99); Mean Platelet Volume 9.4 fl (7.4-10.4); Monocytes # 0.5 K/mm3 (0.1-1.0); Monocytes % 4.2 % (1.7-9.3); Neutrophils # 11.1 K/mm3 (1.8-7.8); Neutrophils % 90.6 % (37.0-80.0); Platelet Count 165 K/mm3 (142-424); Red Cell Distribution Width 17.4 % (11.5-17.5); White Blood Count 12.3 K/mm3 (4.8-10.8)
[2023-10-08 07:07] LABS: MANUAL DIFFERENTIAL MANUAL DIFFERENTIAL (MANUAL DIFF)
[2023-10-08 07:17] LABS: Alanine Aminotransferase 44 U/L (12-78); Albumin/Globulin Ratio 1.5 (1.1-1.8); Alkaline Phosphatase 105 U/L (38-126); Anion Gap 9.2 mEq/L (5-15); Aspartate Amino Transferase 56 U/L (14-36); Bilirubin,Total 1.3 mg/dl (0.2-1.3); Blood Urea Nitrogen 4 mg/dl (7-17); Calcium 8.3 mg/dl (8.4-10.2); Carbon Dioxide 28 mmol/L (22.0-30.0); Chloride 97 mmol/L (98-107); Chol/HDL Ratio 2.8 (1-3.5); Cholesterol 197 mg/dl (140-200); Creatinine Clearance Estimated 158 mL/min (50-200); Estimated Glomerular Filt Rate 135 ml/min (>60); GFR (African American) 163 ML/MIN (>60); Globulin 2.6 g/dL (1.3-3.2); Glucose 100 mg/dl (74-100); HDL Cholesterol 70 mg/dl (40-60); Potassium 3.2 mmoL/L (3.5-5.1); Sodium 131 mmol/L (136-145); Total Protein,Serum 6.6 g/dl (6.3-8.2); Triglycerides 54 mg/dl (30-150); VLDL Cholesterol 11 mg/dL (0-40)
[2023-10-08 07:28] LABS: Direct LDL Cholesterol 104.37 mg/dL (100-129)
[2023-10-08 08:00] VITALS: BP 165/94; PULSE 60; RESP 18; TEMP 37.1; O2SAT 98
--- NOTE | 2023-10-08 08:10 | HMH.PHAINT1 ---
Pharmacy Intervention Comments: Home med list verified with patient at bedside and with external pharmacy list.
--- NOTE | 2023-10-08 08:26 | PC.NURSE ---
primary tech note: nurse Ozzie notified of patient's 0800 blood pressure
[2023-10-08] MEDS: PANTOPRAZOLE 40MG TABLET 40 MG PO (08:28)
[2023-10-08] MEDS: FOLIC ACID 1MG TABLET 1 MG PO (08:28)
[2023-10-08] MEDS: ENOXAPARIN 40MG/0.4ML SYRINGE 40 MG SQ (08:28)
[2023-10-08] MEDS: PIPERACILLIN/TAZO 3.375 GM in 0.9 % SODIUM CHLORIDE 50 ML IV ×3 (08:28→21:02)
[2023-10-08] MEDS: MVI, ADULT NO.1 WITH VIT K 10 ML, THIAMINE HCL 100 MG, MAGNESIUM SULFATE 2 GM in LACTAT... 125 ML IV (08:30)
[2023-10-08 08:53] LABS: Lactate Dehydrogenase 251 U/L (313-618)
[2023-10-08 08:54] LABS: Ethyl Alcohol < 10 mg/dl (0-10)
[2023-10-08 09:24] LABS: Lymphocytes % 2 % (10-50); Monocytes % 2 % (2-9); Neutrophils % 96 % (42-76); Total Cells Counted 100
[2023-10-08 09:27] LABS: Platelet Estimate Normal; RBC Morphology Normal
--- NOTE | 2023-10-08 09:37 | EXP.PN ---
Subjective *Date: 10/08/23 *Time: 09:37 Interval history: complains of abd pain, denied CP, SOB, has nausea and vomiting Exam Data for Last 24 hours Vital signs and Labs for Last 24 Hours: Temp Pulse Resp BP Pulse Ox O2 Del Method 98.7 F 60 18 165/94 H 98 Room Air 10/08/23 08:00 10/08/23 08:00 10/08/23 08:00 10/08/23 08:00 10/08/23 08:00 10/08/23 09:00 Laboratory Results - last 24 hr 10/07/23 19:26: PT 11.8, INR 1.10, APTT 22.2 L, D-Dimer 0.65 H, Sodium 134 L, Potassium 3.8, Chloride 96 L, Carbon Dioxide 23, Anion Gap 18.8 H, BUN 4 L, Creatinine 0.50 L, Estimated Creat Clear 128, Estimated GFR 135, Est GFR ( Amer) 163, Glucose 183 H, Calcium 9.0, Total Bilirubin 1.2, AST 86 H, ALT 59, Alkaline Phosphatase 126, Troponin I 0.02, Total Protein 8.0, Albumin 4.9, Globulin 3.1, Albumin/Globulin Ratio 1.6, Lipase 3855 H, Serum HCG, Qual Negative 10/07/23 20:15: WBC 9.0, RBC 4.88, Hgb 15.5, Hct 46.3, MCV 94.9, MCH 31.8 H, MCHC 33.5, RDW 17.3, Plt Count 173, MPV 9.4, Neut % (Auto) 93.6 H, Lymph % (Auto) 2.9 L, Evangeline % (Auto) 2.6, Eos % (Auto) 0.7, Baso % (Auto) 0.2, Neut # (Auto) 8.4 H, Lymph # (Auto) 0.3 L, Evangeline # (Auto) 0.2, Eos # (Auto) 0.1, Baso # (Auto) 0.0, Total Counted 100, Neutrophils % (Manual) 98 H, Lymphocytes % (Manual) 1 L, Monocytes % (Manual) 1 L, Platelet Estimate Normal, RBC Morphology Normal 10/07/23 21:18: Urine Color Yellow, Urine Appearance Clear, Urine pH 7.5, Ur Specific [place] 1.010, Urine Protein Negative, Urine Glucose (UA) 1+, Urine Ketones Trace, Urine Blood Trace-i, Urine Nitrate Positive, Urine Bilirubin Negative, Urine Urobilinogen 0.2, Ur Leukocyte Esterase Negative, Urine RBC Occasional, Urine WBC 3-5, Ur Squamous Epith Cells Occasional, Urine Bacteria 3+, Urine Opiates Screen Positive H, Urine Methadone Screen Negative, Ur Barbituates Screen Negative, Ur Phencyclidine Scrn Negative, Ur Amphetamines Screen Negative, U Benzodiazepines Scrn Negative, Urine Cocaine Screen Negative, U Marijuana (THC) Screen Negative 10/07/23 22:25: Troponin I < 0.01 10/07/23 22:27: Phosphorus 3.4, Magnesium 1.3 L 10/08/23 01:40: Troponin I < 0.01 10/08/23 06:33: WBC 12.3 H D, RBC 4.80, Hgb 15.2, Hct 45.3, MCV 94.6, MCH 31.7 H, MCHC 33.5, RDW 17.4, Plt Count 165, MPV 9.4, Neut % (Auto) 90.6 H, Lymph % (Auto) 4.3 L, Evangeline % (Auto) 4.2, Eos % (Auto) 0.7, Baso % (Auto) 0.2, Neut # (Auto) 11.1 H, Lymph # (Auto) 0.5 L, Evangeline # (Auto) 0.5, Eos # (Auto) 0.1, Baso # (Auto) 0.0, Total Counted 100, Neutrophils % (Manual) 96 H, Lymphocytes % (Manual) 2 L, Monocytes % (Manual) 2, Platelet Estimate Normal, RBC Morphology Normal, Sodium 131 L, Potassium 3.2 L, Chloride 97 L, Carbon Dioxide 28, Anion Gap 9.2, BUN 4 L, Creatinine 0.50 L, Estimated Creat Clear 158, Estimated GFR 135, Est GFR ( Amer) 163, Glucose 100 D, Calcium 8.3 L, Total Bilirubin 1.3, AST 56 H D, ALT 44 D, Alkaline Phosphatase 105, Lactate Dehydrogenase 251 L, Total Protein 6.6, Albumin 4.0 D, Globulin 2.6, Albumin/Globulin Ratio 1.5, Triglycerides 54, Cholesterol 197, LDL Cholesterol Direct 104.37, VLDL Cholesterol 11, HDL Cholesterol 70 H, Cholesterol/HDL Ratio 2.8, Plasma/Serum Alcohol < 10 I & O for Last 24 hours: Intake & Output 10/05/23 10/06/23 10/07/23 10/08/23 23:59 23:59 23:59 23:59 Output Total 0 / 0 Balance 0 / 0 Weight 55.792 kg 69.031 kg Constitutional Constitutional: no acute distress *Routine HEENT Exam Head: Present normocephalic Eye: Present EOMI and PERRL ENT: Present mucous membranes moist *Routine Neck Exam Neck: Present supple; Absent lymphadenopathy *Routine Respiratory Exam Respiratory: Present CTA bilaterally *Routine Cardiovascular Exam Cardiovascular: Present RRR *Routine Abdominal Exam Abdominal: Present soft, normoactive bowel sounds and tenderness *Routine Extremities Exam Extremities: Absent cyanosis, clubbing or edema *Routine Skin Exam Skin: Present warm; Absent rash *Routine Neurological Exam Neurological: Present alert and oriented X3 Assessment and Plan *Assessment and plan (1) Acute alcoholic pancreatitis: Status: Acute Qualifiers: Acute pancreatitis complication: unspecified Qualified Code(s): K85.20 - Alcohol induced acute pancreatitis without necrosis or infection Category: Medical Code(s): K85.20 - Alcohol induced acute pancreatitis without necrosis or infection (2) UTI (urinary tract infection): Status: Acute Qualifiers: Hematuria presence: without hematuria Urinary tract infection type: site unspecified Qualified Code(s): N39.0 - Urinary tract infection, site not specified Category: Medical Code(s): N39.0 - Urinary tract infection, site not specified (3) Chest pain: Status: Acute Qualifiers: Chest pain type: unspecified Qualified Code(s): R07.9 - Chest pain, unspecified Category: Medical Code(s): R07.9 - Chest pain, unspecified (4) Cellulitis of left leg: Status: Acute Category: Medical Code(s): L03.116 - Cellulitis of left lower limb (5) Hypothyroidism (acquired): Problem Comment: Secondary to radioactive iodine for hyperthyroidism Status: Acute Category: Medical Code(s): E03.9 - Hypothyroidism, unspecified (6) Ankle pain, left: Status: Acute Qualifiers: Chronicity: acute Qualified Code(s): M25.572 - Pain in left ankle and joints of left foot Category: Medical Code(s): M25.572 - Pain in left ankle and joints of left foot (7) Alcohol abuse: Status: Acute Category: Social Hx Code(s): F10.10 - Alcohol abuse, uncomplicated Plan 42-year-old female PMHX of hypothyroidism, heavy daily drinker, chronic Hep C, presented to ED c/o abd pain, nauseas and vomit. on arrival patient underwent on extensive work up. Including CTA of chest that ruled out PEs and any cardiac acute conditions. serial troponin and EKG negative. She also had a. CT of the pelvis and abdomen there is shows acute uncomplicated pancreatitis. Elevated lipase. UA was collected, to rule urinary tract infection. X-rays of the left ankle was obtained to rule out any fracture. Findings were discussed with the ER doctor for admission. -Abdominal pain secondary to acute alcoholic pancreatitis: Surgical consult. Appreciate their insight. Start Zosyn 4.5 g every 8h Zofran and Phenergan as needed for nausea N.p.o. may advance diet as tolerated Pain management. Morphine as needed for severe pain Repeat a monitor labs in the morning -Suspected urinary tract infection: UA showed nitrate positive, with dysuria symptoms UA culture pending -Chest pain, more likely refractory from acute pancreatitis: ACS ruled out. Troponin negative EKG negative CTA of the chest was reviewed. Negative cardiac monitor technician Monitor for chest pain. Vital signs per unit -History of fall at home with left ankle swelling: Was initially treated for cellulitis of the left leg Continues in antibiotic treatment X-ray was obtained negative for acute fracture Pain management as well -History of alcohol abuse currently heavy drinking: Patient interested in detox program. Will refer outsole caser for further assistance CIWA Hypothyroidism Resume Synthroid 125 Lovenox for DVT prophylaxis. On Protonix for GI bleed protection Full code cont IV fluids, pain control
[2023-10-08 12:00] VITALS: BP 170/93; PULSE 68; RESP 18; TEMP 37.1; O2SAT 97
--- NOTE | 2023-10-08 14:30 | SW/DCPLANNER ---
I received a consult on this patient regarding alcohol resources/counseling. Patient expressed an interest in outpatient setting of alcohol resources: patient is NOT interested in inpatient at this time. I did provide patient w/ an [facility] Resource List and information on [facility] in [place]. Patient did not have any further questions at this time. My name and number has been provided to this patient/family as a future reference. Discharge date is unknown at this time.
[2023-10-08] MEDS: AMLODIPINE 5MG TABLET 5 MG PO (15:59)
[2023-10-08 16:00] VITALS: BP 175/99; PULSE 57; RESP 18; TEMP 36.8; O2SAT 99
--- NOTE | 2023-10-08 16:56 | PC.NURSE ---
primary tech note: nurse notified of patient's 1200 BP
[2023-10-08] MEDS: 0.9 % SODIUM CHLORIDE 1000ML 1,000 ML 50 ML IV (19:33)
[2023-10-08 20:00] VITALS: BP 153/93; PULSE 63; RESP 20; TEMP 37.7; O2SAT 97
[2023-10-09] VITALS (7 sets, daily range): BP systolic 133–153; BP diastolic 71–94; PULSE 65–76; RESP 16–20; TEMP 36.8–37.6; O2SAT 96–98; BMI 22.6
[2023-10-09] MEDS: PIPERACILLIN/TAZO 3.375 GM in 0.9 % SODIUM CHLORIDE 50 ML IV ×4 (01:33→19:58)
[2023-10-09] MEDS: MORPHINE 4MG/ML SYRINGE 4 MG IV ×4 (03:01→20:05)
[2023-10-09] MEDS: AMLODIPINE 5MG TABLET 5 MG PO (09:03)
[2023-10-09] MEDS: FOLIC ACID 1MG TABLET 1 MG PO (09:03)
[2023-10-09] MEDS: PANTOPRAZOLE 40MG TABLET 40 MG PO (09:03)
[2023-10-09] MEDS: ENOXAPARIN 40MG/0.4ML SYRINGE 40 MG SQ (09:03)
[2023-10-09] MEDS: MVI, ADULT NO.1 WITH VIT K 10 ML, THIAMINE HCL 100 MG, MAGNESIUM SULFATE 2 GM in LACTAT... 125 ML IV (09:33)
[2023-10-09] MEDS: DULOXETINE 30MG CAPSULE.DR 30 MG PO (11:23)
[2023-10-09] MEDS: LEVOTHYROXINE 125MCG (0.125MG) TAB 125 MCG PO (11:23)
--- NOTE | 2023-10-09 14:59 | EXP.PN ---
Subjective *Date: 10/09/23 *Time: 14:59 Interval history: complains of abd pain, denied CP, SOB, has nausea and vomiting Exam Data for Last 24 hours Vital signs and Labs for Last 24 Hours: Temp Pulse Resp BP Pulse Ox O2 Del Method 99.1 F 72 16 150/71 H 97 Room Air 10/09/23 11:31 10/09/23 11:31 10/09/23 11:31 10/09/23 11:31 10/09/23 11:31 10/09/23 11:31 I & O for Last 24 hours: Intake & Output 10/06/23 10/07/23 10/08/23 10/09/23 23:59 23:59 23:59 23:59 Intake Total 1340 / 1740 980 / 980 Output Total 0 / 0 0 / 0 Balance 1340 / 1740 980 / 980 Weight 55.792 kg 69.031 kg 71.713 kg Constitutional Constitutional: no acute distress *Routine HEENT Exam Head: Present normocephalic Eye: Present EOMI and PERRL ENT: Present mucous membranes moist *Routine Neck Exam Neck: Present supple; Absent lymphadenopathy *Routine Respiratory Exam Respiratory: Present CTA bilaterally *Routine Cardiovascular Exam Cardiovascular: Present RRR *Routine Abdominal Exam Abdominal: Present soft, normoactive bowel sounds and tenderness *Routine Extremities Exam Extremities: Absent cyanosis, clubbing or edema *Routine Skin Exam Skin: Present warm; Absent rash *Routine Neurological Exam Neurological: Present alert and oriented X3 Assessment and Plan *Assessment and plan (1) Acute alcoholic pancreatitis: Status: Acute Qualifiers: Acute pancreatitis complication: unspecified Qualified Code(s): K85.20 - Alcohol induced acute pancreatitis without necrosis or infection Category: Medical Code(s): K85.20 - Alcohol induced acute pancreatitis without necrosis or infection (2) UTI (urinary tract infection): Status: Acute Qualifiers: Hematuria presence: without hematuria Urinary tract infection type: site unspecified Qualified Code(s): N39.0 - Urinary tract infection, site not specified Category: Medical Code(s): N39.0 - Urinary tract infection, site not specified (3) Chest pain: Status: Acute Qualifiers: Chest pain type: unspecified Qualified Code(s): R07.9 - Chest pain, unspecified Category: Medical Code(s): R07.9 - Chest pain, unspecified (4) Cellulitis of left leg: Status: Acute Category: Medical Code(s): L03.116 - Cellulitis of left lower limb (5) Hypothyroidism (acquired): Problem Comment: Secondary to radioactive iodine for hyperthyroidism Status: Acute Category: Medical Code(s): E03.9 - Hypothyroidism, unspecified (6) Ankle pain, left: Status: Acute Qualifiers: Chronicity: acute Qualified Code(s): M25.572 - Pain in left ankle and joints of left foot Category: Medical Code(s): M25.572 - Pain in left ankle and joints of left foot (7) Alcohol abuse: Status: Acute Category: Social Hx Code(s): F10.10 - Alcohol abuse, uncomplicated Plan 42-year-old female PMHX of hypothyroidism, heavy daily drinker, chronic Hep C, presented to ED c/o abd pain, nauseas and vomit. on arrival patient underwent on extensive work up. Including CTA of chest that ruled out PEs and any cardiac acute conditions. serial troponin and EKG negative. She also had a. CT of the pelvis and abdomen there is shows acute uncomplicated pancreatitis. Elevated lipase. UA was collected, to rule urinary tract infection. X-rays of the left ankle was obtained to rule out any fracture. Findings were discussed with the ER doctor for admission. -Abdominal pain secondary to acute alcoholic pancreatitis: Start Zosyn 4.5 g every 8h Zofran and Phenergan as needed for nausea advance diet as tolerate -Suspected urinary tract infection: UA showed nitrate positive, with dysuria symptoms UA culture pending -Chest pain, more likely refractory from acute pancreatitis: ACS ruled out. -History of fall at home with left ankle swelling: Was initially treated for cellulitis of the left leg Continues in antibiotic treatment X-ray was obtained negative for acute fracture Pain management as well -History of alcohol abuse currently heavy drinking: Patient interested in detox program. Will refer test case developer for further assistance CIWA Hypothyroidism Resume Synthroid 125 Lovenox for DVT prophylaxis. On Protonix for GI bleed protection Full code advance diet as tolerated
--- NOTE | 2023-10-09 17:13 | PC.NURSE ---
patient a&ox4 and vss. Patient has c/o abdominal pain. patient has no symptoms of withdraw at this time
[2023-10-09] MEDS: 0.9 % SODIUM CHLORIDE 1000ML 1,000 ML 50 ML IV (18:11)
[2023-10-09] MEDS: QUETIAPINE 100MG TABLET 100 MG PO (20:06)
[2023-10-10] VITALS: BP 115/72; PULSE 69; RESP 17; TEMP 36.7; O2SAT 94
[2023-10-10] MEDS: PIPERACILLIN/TAZO 3.375 GM in 0.9 % SODIUM CHLORIDE 50 ML IV ×4 (01:32→20:47)
--- NOTE | 2023-10-10 03:02 | PC.NURSE ---
CIWA 0. NO S/S OF ALCOHOL WITHDRAWAL. MEDICATED WITH MORPHINE 4 MG IVP AT 2004 FOR UPPER LEFT ABDOMINAL ACHING AND CRAMPING PAIN. NO FURTHER C/O PAIN SINCE THEN. SPOUSE AMD CHILD AT BEDSIDE. NO C/O N/V/D.
[2023-10-10 04:00] VITALS: BP 135/84; PULSE 66; RESP 17; TEMP 36.6; O2SAT 97; BMI 22.6
[2023-10-10] MEDS: LEVOTHYROXINE 125MCG (0.125MG) TAB 125 MCG PO (06:05)
[2023-10-10 08:00] VITALS: BP 139/84; PULSE 67; RESP 16; TEMP 36.6; O2SAT 95
[2023-10-10 08:12] LABS: Anion Gap 2.7 mEq/L (5-15); Blood Urea Nitrogen 4 mg/dl (7-17); Calcium 7.5 mg/dl (8.4-10.2); Carbon Dioxide 31 mmol/L (22.0-30.0); Chloride 98 mmol/L (98-107); Creatinine Clearance Estimated 137 mL/min (50-200); Estimated Glomerular Filt Rate 109 ml/min (>60); GFR (African American) 132 ML/MIN (>60); Glucose 82 mg/dl (74-100); Sodium 129 mmol/L (136-145)
[2023-10-10 08:23] LABS: Potassium 2.7 mmoL/L (3.5-5.1)
[2023-10-10 08:24] LABS: Basophils % 0.2 % (0.1-2.0); Eosinophils # 0.3 K/mm3 (0.0-0.4); Eosinophils % 2.5 % (0.1-12.0); Hematocrit 42.8 % (37.0-47.0); Hemoglobin 14.7 g/dL (12.2-16.2); Lymphocytes # 0.8 K/mm3 (0.7-4.5); Lymphocytes % 7.9 % (10-50); Mean Corpuscular HGB Conc 34.3 g/dL (31.8-35.4); Mean Corpuscular Hemoglobin 32.2 pg (27.0-31.2); Mean Corpuscular Volume 93.7 fl (81-99); Mean Platelet Volume 10.1 fl (7.4-10.4); Monocytes # 0.5 K/mm3 (0.1-1.0); Monocytes % 4.8 % (1.7-9.3); Neutrophils # 8.5 K/mm3 (1.8-7.8); Neutrophils % 84.8 % (37.0-80.0); Platelet Count 136 K/mm3 (142-424); Red Blood Count 4.56 M/mm3 (4.20-5.40); White Blood Count 10.1 K/mm3 (4.8-10.8)
[2023-10-10] MEDS: ENOXAPARIN 40MG/0.4ML SYRINGE 40 MG SQ (08:39)
[2023-10-10] MEDS: PANTOPRAZOLE 40MG TABLET 40 MG PO (08:39)
[2023-10-10] MEDS: FOLIC ACID 1MG TABLET 1 MG PO (08:39)
[2023-10-10] MEDS: AMLODIPINE 5MG TABLET 5 MG PO (08:39)
[2023-10-10] MEDS: DULOXETINE 30MG CAPSULE.DR 30 MG PO (08:39)
[2023-10-10] MEDS: MORPHINE 4MG/ML SYRINGE 4 MG IV (08:39)
[2023-10-10] MEDS: MVI, ADULT NO.1 WITH VIT K 10 ML, THIAMINE HCL 100 MG, MAGNESIUM SULFATE 2 GM in LACTAT... 125 ML IV (10:41)
[2023-10-10 11:19] LABS: Lipase 729 U/L (23-300)
[2023-10-10 11:45] VITALS: BP 134/88; PULSE 72; RESP 16; TEMP 36.6; O2SAT 97
[2023-10-10] MEDS: POTASSIUM CHLORIDE 20MEQ TAB 60 MEQ PO (11:55)
[2023-10-10] MEDS: KCl 10mEq/100ml 100 ML 100 MEQ IV (11:55)
--- NOTE | 2023-10-10 14:16 | P.PN_ITS ---
Subjective *Date: 10/10/23 *Time: 14:16 Interval history: complains of abd pain, denied CP, SOB, has nausea and vomiting Exam Data for Last 24 hours Vital signs and Labs for Last 24 Hours: Temp Pulse Resp BP Pulse Ox O2 Del Method 97.8 F 72 16 134/88 97 Room Air 10/10/23 11:45 10/10/23 11:45 10/10/23 11:45 10/10/23 11:45 10/10/23 11:45 10/10/23 11:45 Laboratory Results - last 24 hr 10/07/23 20:42: Hepatitis C Ab Note Comment, HCV Quantitation Hcv not detected, HCV RNA (PCR) IU log10 TNP 10/10/23 07:27: WBC 10.1, RBC 4.56, Hgb 14.7, Hct 42.8, MCV 93.7, MCH 32.2 H, MCHC 34.3, RDW 17.0, Plt Count 136 L, MPV 10.1, Neut % (Auto) 84.8 H, Lymph % (Auto) 7.9 L, Ray % (Auto) 4.8, Eos % (Auto) 2.5, Baso % (Auto) 0.2, Neut # (Auto) 8.5 H, Lymph # (Auto) 0.8, Ray # (Auto) 0.5, Eos # (Auto) 0.3, Baso # (Auto) 0.0, Sodium 129 L, Potassium 2.7 L*, Chloride 98, Carbon Dioxide 31 H, Anion Gap 2.7 L, BUN 4 L, Creatinine 0.60, Estimated Creat Clear 137, Estimated GFR 109, Est GFR ( Amer) 132, Glucose 82, Calcium 7.5 L, Lipase 729 H I & O for Last 24 hours: Intake & Output 10/07/23 10/08/23 10/09/23 10/10/23 23:59 23:59 23:59 23:59 Intake Total 1340 / 1740 1715 / 2636 1521 / 1521 Output Total 0 / 0 0 / 0 0 / 0 Balance 1340 / 1740 1715 / 2636 1521 / 1521 Weight 55.792 kg 69.031 kg 71.713 kg 71.714 kg Constitutional Constitutional: no acute distress *Routine HEENT Exam Head: Present normocephalic Eye: Present EOMI and PERRL ENT: Present mucous membranes moist *Routine Neck Exam Neck: Present supple; Absent lymphadenopathy *Routine Respiratory Exam Respiratory: Present CTA bilaterally *Routine Cardiovascular Exam Cardiovascular: Present RRR *Routine Abdominal Exam Abdominal: Present soft, normoactive bowel sounds and tenderness *Routine Extremities Exam Extremities: Absent cyanosis, clubbing or edema *Routine Skin Exam Skin: Present warm; Absent rash *Routine Neurological Exam Neurological: Present alert and oriented X3 Assessment and Plan *Assessment and plan (1) Acute alcoholic pancreatitis: Status: Acute Qualifiers: Acute pancreatitis complication: unspecified Qualified Code(s): K85.20 - Alcohol induced acute pancreatitis without necrosis or infection Category: Medical Code(s): K85.20 - Alcohol induced acute pancreatitis without necrosis or infection (2) UTI (urinary tract infection): Status: Acute Qualifiers: Hematuria presence: without hematuria Urinary tract infection type: site unspecified Qualified Code(s): N39.0 - Urinary tract infection, site not specified Category: Medical Code(s): N39.0 - Urinary tract infection, site not specified (3) Chest pain: Status: Acute Qualifiers: Chest pain type: unspecified Qualified Code(s): R07.9 - Chest pain, unspecified Category: Medical Code(s): R07.9 - Chest pain, unspecified (4) Cellulitis of left leg: Status: Acute Category: Medical Code(s): L03.116 - Cellulitis of left lower limb (5) Hypothyroidism (acquired): Problem Comment: Secondary to radioactive iodine for hyperthyroidism Status: Acute Category: Medical Code(s): E03.9 - Hypothyroidism, unspecified (6) Ankle pain, left: Status: Acute Qualifiers: Chronicity: acute Qualified Code(s): M25.572 - Pain in left ankle and j oints of left foot Category: Medical Code(s): M25.572 - Pain in left ankle and joints of left foot (7) Alcohol abuse: Status: Acute Category: Social Hx Code(s): F10.10 - Alcohol abuse, uncomplicated Plan 42-year-old female PMHX of hypothyroidism, heavy daily drinker, chronic Hep C, presented to ED c/o abd pain, nauseas and vomit. on arrival patient underwent on extensive work up. Including CTA of chest that ruled out PEs and any cardiac acute conditions. serial troponin and EKG negative. She also had a. CT of the pelvis and abdomen there is shows acute uncomplicated pancreatitis. Elevated lipase. UA was collected, to rule urinary tract infection. X-rays of the left ankle was obtained to rule out any fracture. Findings were discussed with the ER doctor for admission. -Abdominal pain secondary to acute alcoholic pancreatitis: Zosyn 4.5 g every 8h Zofran and Phenergan as needed for nausea advance diet as tolerate -Suspected urinary tract infection: UA showed nitrate positive, with dysuria symptoms UA culture pending -Chest pain, more likely refractory from acute pancreatitis: ACS ruled out. -History of fall at home with left ankle swelling: Was initially treated for cellulitis of the left leg Continues in antibiotic treatment X-ray was obtained negative for acute fracture Pain management as well -History of alcohol abuse currently heavy drinking: Patient interested in detox program. Will refer family service caseworker for further assistance CIWA Hypothyroidism Resume Synthroid 125 Lovenox for DVT prophylaxis. On Protonix for GI bleed protection Full code advance diet as tolerated, continue current diet - not tolerating well
[2023-10-10 16:00] VITALS: BP 135/64; PULSE 72; RESP 16; TEMP 36.6; O2SAT 98
[2023-10-10 16:26] LABS: Potassium 4.6 mmoL/L (3.5-5.1)
--- NOTE | 2023-10-10 17:26 | PC.NURSE ---
patient a&ox4 and vss. Patient has abdominal tenderness and pain. Patient has been tolerating clear liquids. Patient tolerating IV fluids and antibiotics
[2023-10-10 20:00] VITALS: BP 108/59; PULSE 67; RESP 17; TEMP 37.2; O2SAT 97
[2023-10-10] MEDS: BUPRENORPHINE/NALOXONE 8MG/2MG ODT 1 EACH SL (20:47)
[2023-10-10] MEDS: QUETIAPINE 100MG TABLET 100 MG PO (20:47)
[2023-10-11] VITALS: BP 128/77; PULSE 67; RESP 17; TEMP 36.9; O2SAT 99
[2023-10-11] MEDS: PIPERACILLIN/TAZO 3.375 GM in 0.9 % SODIUM CHLORIDE 50 ML IV ×4 (02:32→20:34)
[2023-10-11] MEDS: 0.9 % SODIUM CHLORIDE 1000ML 1,000 ML 50 ML IV (02:33)
[2023-10-11 04:00] VITALS: BP 120/73; PULSE 61; RESP 17; TEMP 36.8; O2SAT 97; BMI 22.6
--- NOTE | 2023-10-11 05:34 | PC.NURSE ---
Patient has had a great shift. Took and shower and changed her linens. Patient CIWAs have been 0 through the whole shift. Family remains at bedside. No other issues noted.
[2023-10-11] MEDS: LEVOTHYROXINE 125MCG (0.125MG) TAB 125 MCG PO (06:07)
[2023-10-11 07:15] LABS: Basophils # 0.1 K/mm3 (0-0.2); Basophils % 0.9 % (0.1-2.0); Eosinophils # 0.3 K/mm3 (0.0-0.4); Eosinophils % 2.8 % (0.1-12.0); Hematocrit 42.1 % (37.0-47.0); Hemoglobin 14.3 g/dL (12.2-16.2); Lymphocytes # 0.8 K/mm3 (0.7-4.5); Lymphocytes % 8.3 % (10-50); Mean Corpuscular HGB Conc 34.1 g/dL (31.8-35.4); Mean Corpuscular Hemoglobin 32.4 pg (27.0-31.2); Mean Corpuscular Volume 94.9 fl (81-99); Mean Platelet Volume 10.1 fl (7.4-10.4); Monocytes # 0.6 K/mm3 (0.1-1.0); Monocytes % 5.7 % (1.7-9.3); Neutrophils # 7.8 K/mm3 (1.8-7.8); Neutrophils % 82.3 % (37.0-80.0); Platelet Count 143 K/mm3 (142-424); Red Blood Count 4.43 M/mm3 (4.20-5.40); Red Cell Distribution Width 17.3 % (11.5-17.5); White Blood Count 9.5 K/mm3 (4.8-10.8)
[2023-10-11 07:22] LABS: Anion Gap 7.8 mEq/L (5-15); Blood Urea Nitrogen 4 mg/dl (7-17); Calcium 7.8 mg/dl (8.4-10.2); Carbon Dioxide 27 mmol/L (22.0-30.0); Chloride 100 mmol/L (98-107); Creatinine Clearance Estimated 137 mL/min (50-200); Estimated Glomerular Filt Rate 109 ml/min (>60); GFR (African American) 132 ML/MIN (>60); Glucose 95 mg/dl (74-100); Sodium 132 mmol/L (136-145)
[2023-10-11 07:30] LABS: Potassium 2.8 mmoL/L (3.5-5.1)
--- NOTE | 2023-10-11 07:46 | P.PN_ITS ---
Subjective *Date: 10/11/23 *Time: 07:46 Medical Exam Vital signs and Labs for Last 24 Hours: Vital Signs Temp Pulse Resp BP Pulse Ox O2 Del Method 10/11/23 06:50 Room Air 10/11/23 04:00 98.3 F 61 17 120/73 97 10/11/23 05:00 Room Air 10/11/23 03:00 Room Air 10/11/23 01:00 Room Air 10/11/23 00:00 98.4 F 67 17 128/77 99 Room Air 10/10/23 23:00 Room Air 10/10/23 21:00 Room Air 10/10/23 20:00 Room Air 10/10/23 20:00 98.9 F 67 17 108/59 L 97 Room Air 10/10/23 16:00 97.9 F 72 16 135/64 98 Room Air 10/10/23 11:45 97.8 F 72 16 134/88 97 Room Air 10/10/23 08:00 97.9 F 67 16 139/84 95 Room Air Intake and Output 10/10/23 10/10/23 10/11/23 15:59 23:59 07:59 Intake Total 360 / 2301 580 / 2301 200 / 200 Output Total 0 / 0 0 / 0 Balance 360 / 2301 580 / 2301 200 / 200 Intake: Intake, Oral Amount 360 / 1930 580 / 1930 150 / 150 Intake, Total IV Amount 50 / 50 Piperacillin/Tazo 3.375 gm In 0 50 / 50 .9 % Sodium Chloride 50 ml @ 100 mls/hr IV Q6H [facility] Rx#: [id number] Output: Output, Urine Amount 0 / 0 0 / 0 Other: Number of Unmeasured Voids 1 1 Weight 71.71 kg Patient Weight 10/11/23 23:59 Weight 71.71 kg Laboratory Results - last 24 hr 10/10/23 07:27: WBC 10.1, RBC 4.56, Hgb 14.7, Hct 42.8, MCV 93.7, MCH 32.2 H, MCHC 34.3, RDW 17.0, Plt Count 136 L, MPV 10.1, Neut % (Auto) 84.8 H, Lymph % (Auto) 7.9 L, Rogers % (Auto) 4.8, Eos % (Auto) 2.5, Baso % (Auto) 0.2, Neut # (Auto) 8.5 H, Lymph # (Auto) 0.8, Rogers # (Auto) 0.5, Eos # (Auto) 0.3, Baso # (Auto) 0.0, Sodium 129 L, Potassium 2.7 L*, Chloride 98, Carbon Dioxide 31 H, Anion Gap 2.7 L, BUN 4 L, Creatinine 0.60, Estimated Creat Clear 137, Estimated GFR 109, Est GFR ( Amer) 132, Glucose 82, Calcium 7.5 L, Lipase 729 H 10/10/23 15:40: Potassium 4.6 D 10/11/23 06:49: WBC 9.5, RBC 4.43, Hgb 14.3, Hct 42.1, MCV 94.9, MCH 32.4 H, MCHC 34.1, RDW 17.3, Plt Count 143, MPV 10.1, Neut % (Auto) 82.3 H, Lymph % (Auto) 8.3 L, Rogers % (Auto) 5.7, Eos % (Auto) 2.8, Baso % (Auto) 0.9, Neut # (Auto) 7.8, Lymph # (Auto) 0.8, Rogers # (Auto) 0.6, Eos # (Auto) 0.3, Baso # (Auto) 0.1, Sodium 132 L, Potassium 2.8 L* D, Chloride 100, Carbon Dioxide 27, Anion Gap 7.8, BUN 4 L, Creatinine 0.60, Estimated Creat Clear 137, Estimated GFR 109, Est GFR ( Amer) 132, Glucose 95, Calcium 7.8 L I & O for Labs for Last 24 Hours: Intake & Output 10/08/23 10/09/23 10/10/23 10/11/23 23:59 23:59 23:59 23:59 Intake Total 1340 / 1740 171 / 2636 2100 200 / 200 Output Total 0 / 0 0 / 0 0 / 0 0 / 0 Balance 1340 / 1740 171 / 2636 2100 200 / 200 Weight 69.031 kg 71.713 kg 71.714 kg 71.71 kg The patient's infection will respond to the chosen ABx?: Yes (EMPIRIC THERAPY) Is the patient receiving the right drug, dose, and route?: Yes Could a more targeted ABx be ordered?: No (CULTURES PENDING)
[2023-10-11 07:48] VITALS: BP 143/95; PULSE 69; RESP 16; TEMP 36.7; O2SAT 97
[2023-10-11] MEDS: PANTOPRAZOLE 40MG TABLET 40 MG PO (07:52)
[2023-10-11] MEDS: DULOXETINE 30MG CAPSULE.DR 30 MG PO (07:52)
[2023-10-11] MEDS: FOLIC ACID 1MG TABLET 1 MG PO (07:52)
[2023-10-11] MEDS: AMLODIPINE 5MG TABLET 5 MG PO (07:53)
[2023-10-11] MEDS: BUPRENORPHINE/NALOXONE 8MG/2MG ODT 1 EACH SL ×2 (07:53→20:37)
--- NOTE | 2023-10-11 08:22 | EXP.EVENT.NO ---
patient wants to advance to regular diet from clear liquid, will order
[2023-10-11] MEDS: KCl 10mEq/100ml 100 ML 100 MEQ IV (08:39)
[2023-10-11] MEDS: ENOXAPARIN 40MG/0.4ML SYRINGE 40 MG SQ (08:40)
[2023-10-11] MEDS: POTASSIUM CHLORIDE 20MEQ TAB 20 MEQ PO (08:40)
[2023-10-11] MEDS: MVI, ADULT NO.1 WITH VIT K 10 ML, THIAMINE HCL 100 MG, MAGNESIUM SULFATE 2 GM in LACTAT... 125 ML IV (10:16)
[2023-10-11 11:54] VITALS: BP 135/71; PULSE 67; RESP 18; TEMP 36.6; O2SAT 97
--- NOTE | 2023-10-11 12:50 | P.PN_ITS ---
Subjective *Date: 10/11/23 *Time: 12:50 Interval history: complains of abd pain, mentions it is mildy getting better, had nausea, tolerated liquid diet, feels hungry today,, denied CP, SOB Exam Data for Last 24 hours Vital signs and Labs for Last 24 Hours: Temp Pulse Resp BP Pulse Ox O2 Del Method 97.9 F 67 18 135/71 97 Room Air 10/11/23 11:54 10/11/23 11:54 10/11/23 11:54 10/11/23 11:54 10/11/23 11:54 10/11/23 11:54 Laboratory Results - last 24 hr 10/10/23 15:40: Potassium 4.6 D 10/11/23 06:49: WBC 9.5, RBC 4.43, Hgb 14.3, Hct 42.1, MCV 94.9, MCH 32.4 H, MCHC 34.1, RDW 17.3, Plt Count 143, MPV 10.1, Neut % (Auto) 82.3 H, Lymph % (Auto) 8.3 L, [place] % (Auto) 5.7, Eos % (Auto) 2.8, Baso % (Auto) 0.9, Neut # (Auto) 7.8, Lymph # (Auto) 0.8, [place] # (Auto) 0.6, Eos # (Auto) 0.3, Baso # (Aut o) 0.1, Sodium 132 L, Potassium 2.8 L* D, Chloride 100, Carbon Dioxide 27, Anion Gap 7.8, BUN 4 L, Creatinine 0.60, Estimated Creat Clear 137, Estimated GFR 109, Est GFR ( Amer) 132, Glucose 95, Calcium 7.8 L I & O for Last 24 hours: Intake & Output 10/08/23 10/09/23 10/10/23 10/11/23 23:59 23:59 23:59 23:59 Intake Total 1340 / 1740 1715 / 2636 210 / 2301 300 / 300 Output Total 0 / 0 0 / 0 0 / 0 0 / 0 Balance 1340 / 1740 1715 / 2636 210 / 2301 300 / 300 Weight 69.031 kg 71.713 kg 71.714 kg 71.71 kg Constitutional Constitutional: no acute distress *Routine HEENT Exam Head: Present normocephalic Eye: Present EOMI and PERRL ENT: Present mucous membranes moist *Routine Neck Exam Neck: Present supple; Absent lymphadenopathy *Routine Respiratory Exam Respiratory: Present CTA bilaterally *Routine Cardiovascular Exam Cardiovascular: Present RRR *Routine Abdominal Exam Abdominal: Present soft, normoactive bowel sounds and tenderness *Routine Extremities Exam Extremities: Absent cyanosis, clubbing or edema *Routine Skin Exam Skin: Present warm; Absent rash *Routine Neurological Exam Neurological: Present alert and oriented X3 Assessment and Plan *Assessment and plan (1) Acute alcoholic pancreatitis: Status: Acute Qualifiers: Acute pancreatitis complication: unspecified Qualified Code(s): K85.20 - Alcohol induced acute pancreatitis without necrosis or infection Category: Medical Code(s): K85.20 - Alcohol induced acute pancreatitis without necrosis or infection (2) UTI (urinary tract infection): Status: Acute Qualifiers: Hematuria presence: without hematuria Urinary tract infection type: site unspecified Qualified Code(s): N39.0 - Urinary tract infection, site not specified Category: Medical Code(s): N39.0 - Urinary tract infection, site not specified (3) Chest pain: Status: Acute Qualifiers: Chest pain type: unspecified Qualified Code(s): R07.9 - Chest pain, unspecified Category: Medical Code(s): R07.9 - Chest pain, unspecified (4) Cellulitis of left leg: Status: Acute Category: Medical Code(s): L03.116 - Cellulitis of left lower limb (5) Hypothyroidism (acquired): Problem Comment: Secondary to radioactive iodine for hyperthyroidism Status: Acute Category: Medical Code(s): E03.9 - Hypothyroidism, unspecified (6) Ankle pain, left: Status: Acute Qualifiers: Chronicity: acute Qualified Code(s): M25.572 - Pain in left ankle and joints of left foot Category: Medical Code(s): M25.572 - Pain in left ankle and joints of left foot (7) Alcohol abuse: Status: Acute Category: Social Hx Code(s): F10.10 - Alcohol abuse, uncomplicated Plan 42-year-old female PMHX of hypothyroidism, heavy daily drinker, chronic Hep C, presented to ED c/o abd pain, nauseas and vomit. on arrival patient underwent on extensive work up. Including CTA of chest that ruled out PEs and any cardiac acute conditions. serial troponin and EKG negative. She also had a. CT of the pelvis and abdomen there is shows acute uncomplicated pancreatitis. Elevated lipase. UA was collected, to rule urinary tract infection. X-rays of the left ankle was obtained to rule out any fracture. Findings were discussed with the ER doctor for admission. -Abdominal pain secondary to acute alcoholic pancreatitis: Zosyn 4.5 g every 8h Zofran and Phenergan as needed for nausea advance diet as tolerate, requesting to try regular diet -Suspected urinary tract infection: UA showed nitrate positive, with dysuria symptoms UA culture pending -Chest pain, more likely refractory from acute pancreatitis: ACS ruled out. -History of fall at home with left ankle swelling: Was initially treated for cellulitis of the left leg Continues in antibiotic treatment X-ray was obtained negative for acute fracture Pain management as well -History of alcohol abuse currently heavy drinking: Patient interested in detox program. Will refer correctional casework specialist for further assistance CIWA Hypothyroidism Resume Synthroid 125 Lovenox for DVT prophylaxis. On Protonix for GI bleed protection Full code advance diet as tolerated, dc 1-2 days
[2023-10-11 20:00] VITALS: BP 151/88; PULSE 73; RESP 20; TEMP 36.8; O2SAT 99
[2023-10-11] MEDS: QUETIAPINE 100MG TABLET 100 MG PO (20:38)
[2023-10-11] MEDS: SIMETHICONE 80MG CHEWABLE TABLET 80 MG PO (23:02)
[2023-10-12] VITALS: BP 126/93; PULSE 76; RESP 20; TEMP 36.7; O2SAT 98
[2023-10-12] MEDS: PIPERACILLIN/TAZO 3.375 GM in 0.9 % SODIUM CHLORIDE 50 ML IV ×3 (02:20→14:58)
[2023-10-12 04:00] VITALS: BP 126/83; PULSE 70; RESP 20; TEMP 36.8; O2SAT 98; BMI 22.6
[2023-10-12 06:57] LABS: Basophils % 0.3 % (0.1-2.0); Eosinophils # 0.3 K/mm3 (0.0-0.4); Eosinophils % 3.4 % (0.1-12.0); Hematocrit 41.5 % (37.0-47.0); Hemoglobin 13.7 g/dL (12.2-16.2); Lymphocytes % 12.5 % (10-50); Mean Corpuscular HGB Conc 33.1 g/dL (31.8-35.4); Mean Corpuscular Hemoglobin 31.7 pg (27.0-31.2); Mean Corpuscular Volume 95.8 fl (81-99); Mean Platelet Volume 9.7 fl (7.4-10.4); Monocytes # 0.6 K/mm3 (0.1-1.0); Monocytes % 7.2 % (1.7-9.3); Neutrophils # 5.9 K/mm3 (1.8-7.8); Neutrophils % 76.5 % (37.0-80.0); Platelet Count 167 K/mm3 (142-424); Red Blood Count 4.33 M/mm3 (4.20-5.40); Red Cell Distribution Width 17.2 % (11.5-17.5); White Blood Count 7.8 K/mm3 (4.8-10.8)
[2023-10-12 07:08] LABS: Anion Gap 8.1 mEq/L (5-15); Blood Urea Nitrogen 3 mg/dl (7-17); Calcium 7.8 mg/dl (8.4-10.2); Carbon Dioxide 27 mmol/L (22.0-30.0); Chloride 101 mmol/L (98-107); Creatinine Clearance Estimated 164 mL/min (50-200); Estimated Glomerular Filt Rate 135 ml/min (>60); GFR (African American) 163 ML/MIN (>60); Glucose 97 mg/dl (74-100); Potassium 3.1 mmoL/L (3.5-5.1); Sodium 133 mmol/L (136-145)
[2023-10-12 08:00] VITALS: BP 143/88; PULSE 70; RESP 18; TEMP 38.1; O2SAT 97
--- NOTE | 2023-10-12 08:29 | PC.NURSE ---
TECH NOTE; NOTIFIED NURSE OF TEMPERATURE FOR 0800 VITAL SIGNS Karina BLACK, SRNA
[2023-10-12] MEDS: DULOXETINE 30MG CAPSULE.DR 30 MG PO (08:31)
[2023-10-12] MEDS: BUPRENORPHINE/NALOXONE 8MG/2MG ODT 1 EACH SL (08:32)
[2023-10-12] MEDS: PANTOPRAZOLE 40MG TABLET 40 MG PO (08:32)
[2023-10-12] MEDS: FOLIC ACID 1MG TABLET 1 MG PO (08:32)
[2023-10-12] MEDS: LEVOTHYROXINE 125MCG (0.125MG) TAB 125 MCG PO (08:32)
[2023-10-12] MEDS: ENOXAPARIN 40MG/0.4ML SYRINGE 40 MG SQ (08:32)
[2023-10-12] MEDS: AMLODIPINE 5MG TABLET 5 MG PO (08:32)
[2023-10-12] MEDS: MVI, ADULT NO.1 WITH VIT K 10 ML, THIAMINE HCL 100 MG, MAGNESIUM SULFATE 2 GM in LACTAT... 125 ML IV (09:16)
--- NOTE | 2023-10-12 10:47 | P.DS_ITS ---
General Admission date:: 10/07/23 Discharge date: 10/12/23 HPI HPI HPI: Patient is a 42-year-old female from [facility] who presented to the emergency department in the evening of 10/07/2023 with several complaints. She has a history of hypothyroidism, heavy daily alcohol consumption, chronic hepatitis C (untreated). She had some nausea and vomiting as well as substernal chest pain with and nonexertional diaphoresis. Patient does describe intermittent abdominal pain for some time in the right lower quadrant. She had apparently undergone extensive surgery on the right lower quadrant including marycruz wel resection, oophorectomy with salpingectomy. She also describes symptoms of dysuria. Evaluation in the emergency department revealed AST of 86 and lipase of 3855. CT scan revealed findings of uncomplicated acute pancreatitis . She was admitted for inpatient management and surgical consultation was obtained. Hospital Course Hospital Course Hospital Course: 42-year-old female PMHX of hypothyroidism, heavy daily drinker, chronic Hep C, presented to ED c/o abd pain, nauseas and vomit. on arrival patient underwent on extensive work up. Including CTA of chest that ruled out PEs and any cardiac acute conditions. serial troponin and EKG negative. She also had a. CT of the pelvis and abdomen there is shows acute uncomplicated pancreatitis. Elevated lipase. UA was collected, to rule urinary tract infection. X-rays of the left ankle was obtained to rule out any fracture. Findings were discussed with the ER doctor for admission. Patient with improvement and pain during admission. Was initiated on empiric antibiotics. Tolerating p.o. intake and pain control stable. Meeting criteria for discharge home. Problems addressed as follows: -Abdominal pain secondary to acute alcoholic pancreatitis: Initial imaging with pancreatitis and elevated lipase. Pain improved and able to advance diet. Treat empirically with antibiotics during admission, these were discontinued at discharge as there is no continued need for antibiotic treatment. Kidney function and electrolytes stable. Patient is tolerating p.o. intake and p.o. pain medication, will discharge home with recommendation to follow-up with her PCP for further evaluation. Counseled on need to stop drinking. -Suspected urinary tract infection: UA showed nitrate positive, with dysuria symptoms. Urine culture was positive. Patient completed 5 days of antibiotics IV during admission. No further treatment necessary. Culture was pansensitive. -Chest pain, more likely refractory from acute pancreatitis: ACS ruled out. -History of fall at home with left ankle swelling: Was initially treated for cellulitis of the left leg. X-ray negative for fracture. Stable at discharge -History of alcohol abuse currently heavy drinking: Patient interested in detox program. Case management consulted. No symptoms of withdrawal during admission. Hypothyroidism: Resume Synthroid 125 Hypertension: Initiated on amlodipine. Chronic pain/opiate use disorder: Continue Suboxone. Patient missed her Suboxone appointment, provided with short course of Suboxone until she is able to get back into her Suboxone clinic. Brandan reviewed, patient appropriately out of medication at this time given last pill. Spent 30 minutes in discharge counseling, documentation, chart review, and direct care with patient. Exam Data for Last 24 hours Vital signs and Labs for Last 24 Hours: Temp Pulse Resp BP Pulse Ox O2 Del Method 100.6 F H 70 18 143/88 H 97 Room Air 10/12/23 08:00 10/12/23 08:00 10/12/23 08:00 10/12/23 08:00 10/12/23 08:00 10/12/23 08:00 Laboratory Results - last 24 hr 10/12/23 06:37: WBC 7.8, RBC 4.33, Hgb 13.7, Hct 41.5, MCV 95.8, MCH 31.7 H, MCHC 33.1, RDW 17.2, Plt Count 167, MPV 9.7, Neut % (Auto) 76.5, Lymph % (Auto) 12.5, [place] % (Auto) 7.2, Eos % (Auto) 3.4, Baso % (Auto) 0.3, Neut # (Auto) 5.9, Lymph # (Auto) 1.0, [place] # (Auto) 0.6, Eos # (Auto) 0.3, Baso # (Auto) 0.0, Sodium 133 L, Potassium 3.1 L, Chloride 101, Carbon Dioxide 27, Anion Gap 8.1, BUN 3 L, Creatinine 0.50 L, Estimated Creat Clear 164, Estimated GFR 135, Est GFR ( Amer) 163 D, Glucose 97, Calcium 7.8 L I & O for Last 24 hours: Intake & Output 10/09/23 10/10/23 10/11/23 10/12/23 23:59 23:59 23:59 23:59 Intake Total 1715 / 2636 2101 / 2301 2152 / 2152 240 / 240 Output Total 0 / 0 0 / 0 1 / 1 0 / 0 Balance 1714 240 / 240 Weight 71.713 kg 71.714 kg 71.71 kg 71.71 kg Constitutional Constitutional: no acute distress and average body habitus *Routine HEENT Exam Head: Present normocephalic Eye: Present EOMI and PERRL ENT: Present mucous membranes moist *Routine Neck Exam Neck: Present supple; Absent lymphadenopathy *Routine Respiratory Exam Respiratory: Present CTA bilaterally; Absent rhonchi, wheezes or crackles *Routine Cardiovascular Exam Cardiovascular: Present RRR *Routine Abdominal Exam Abdominal: Present soft, normoactive bowel sounds and tenderness (mild in LUQ) *Routine Extremities Exam Extremities: Absent cyanosis, clubbing or edema *Routine Skin Exam Skin: Present warm; Absent rash *Routine Neurological Exam Neurological: Present alert, oriented X3 and moving all extremities; Absent altered mental status Results Data Completed and Pending Labs on day of discharge: Labs from last 24 hours 10/12/23 06:37 WBC 7.8 RBC 4.33 Hgb 13.7 Hct 41.5 MCV 95.8 MCH 31.7 H MCHC 33.1 RDW 17.2 Plt Count 167 MPV 9.7 Neut % (Auto) 76.5 Lymph % (Auto) 12.5 [place] % (Auto) 7.2 Eos % (Auto) 3.4 Baso % (Auto) 0.3 Neut # (Auto) 5.9 Lymph # (Auto) 1.0 [place] # (Auto) 0.6 Eos # (Auto) 0.3 Baso # (Auto) 0.0 Sodium 133 L Potassium 3.1 L Chloride 101 Carbon Dioxide 27 Anion Gap 8.1 BUN 3 L Creatinine 0.50 L Estimated Creat Clear 164 Estimated GFR 135 Est GFR ( Amer) 163 D Glucose 97 Calcium 7.8 L DS: Diagnosis Discharge Diagnosis (1) Acute alcoholic pancreatitis: Status: Acute Code(s): K85.20 - Alcohol induced acute pancreatitis without necrosis or infection Qualifiers: Acute pancreatitis complication: unspecified Qualified Code(s): K85.20 - Alcohol induced acute pancreatitis without necrosis or infection (2) UTI (urinary tract infection): Status: Acute Code(s): N39.0 - Urinary tract infection, site not specified Qualifiers: Hematuria presence: without hematuria Urinary tract infection type: site unspecified Qualified Code(s): N39.0 - Urinary tract infection, site not specified (3) Chest pain: Status: Resolved Code(s): R07.9 - Chest pain, unspecified Qualifiers: Chest pain type: unspecified Qualified Code(s): R07.9 - Chest pain, unspecified (4) Cellulitis of left leg: Status: Resolved Code(s): L03.116 - Cellulitis of left lower limb (5) Hypothyroidism (acquired): Status: Acute Code(s): E03.9 - Hypothyroidism, unspecified Problem details: Secondary to radioactive iodine for hyperthyroidism (6) Ankle pain, left: Status: Resolved Code(s): M25.572 - Pain in left ankle and joints of left foot Qualifiers: Chronicity: acute Qualified Code(s): M25.572 - Pain in left ankle and joints of left foot (7) Alcohol abuse: Status: Acute Code(s): F10.10 - Alcohol abuse, uncomplicated Meds Home Medications and Allergies Home Medications Medication Instructions Recorded Confirmed Type ergocalciferol (vitamin D2) 1,250 50,000 unit PO QWEEK #14 caps 12/30/20 10/08/23 Rx mcg (50,000 unit) capsule cholecalciferol (vitamin D3) 25 25 mcg PO DAILY #90 caps 11/17/21 10/07/23 Rx mcg (1,000 unit) capsule diclofenac sodium 1 % topical gel 2 g topical QID PRN Pain 10/07/23 10/07/23 History (Arthritis Pain (diclofenac)) duloxetine 20 mg capsule,delayed 20 mg PO DAILY 10/08/23 10/08/23 History release levothyroxine 125 mcg tablet 125 mcg PO AM 10/08/23 10/08/23 History pantoprazole 40 mg tablet,delayed 40 mg PO DAILY 10/08/23 10/08/23 History release quetiapine 50 mg tablet 100 mg PO HS 10/08/23 10/08/23 History amlodipine 5 mg tablet 5 mg PO DAILY 30 days #30 tabs 10/12/23 Rx buprenorphine 8 mg-naloxone 2 mg 1 tab sublingual BID 3 days #6 tabs 10/12/23 Rx sublingual tablet New Prescriptions to Start Prescriptions: Anthony Freire-naloxone Anthony King Allergies Allergy/AdvReac Type Severity Reaction Status Date / Time codeine Allergy Mild jitters Verified 12/30/20 16:31 NSAIDS (Non-Steroidal Allergy Mild Hives Verified 12/30/20 16:31 Anti-Inflamma Discharge Plan Disposition Patient Disposition: Home, Self-Care Condition: Good Discharge Order Discharge Orders: Discharge Order (Routine); Ordered 10/12/23 Ordered By: Anthony King Follow up Plan Follow up with: Jaswinder Davalos MD [Staff Physician] - 10/26/23 10:30 am Mela Aquino PA [Primary Care Provider] - 10/25/23 10:30 am Prescriptions/Medication Reconciliation: New amlodipine 5 mg Tablet 5 mg PO DAILY 30 Days Qty: 30 0RF Continued ergocalciferol (vitamin D2) 1,250 mcg (50,000 unit) capsule 50,000 unit PO QWEEK Qty: 14 3RF cholecalciferol (vitamin D3) 25 mcg (1,000 unit) capsule 25 mcg PO DAILY Qty: 90 3RF diclofenac sodium [Arthritis Pain (diclofenac)] 1 % gel 2 g TOPICAL QID PRN (Reason: Pain) pantoprazole 40 mg tablet,delayed release (DR/EC) 40 mg PO DAILY levothyroxine 125 mcg tablet 125 mcg PO AM duloxetine 20 mg capsule,delayed release(DR/EC) 20 mg PO DAILY quetiapine 50 mg tablet 100 mg PO HS buprenorphine-naloxone 8-2 mg tablet, sublingual 1 tab SUBLINGUAL BID 3 Days Qty: 6 0RF Problem Reconciliation Problems Reviewed?: Yes Patient Discharge Instructions ACTIVITY: Continue current activity DIET: continue same diet, advance to your usual diet and low fat, low cholesterol Patient Instructions: DI for Pancreatitis, DI for Urinary Tract Infection (UTI), DI for Alcohol Use Disorder Providers Primary Care Provider: Mela Aquino Admit Provider: Jimmy Maravilla Attending Provider: Jimmy Maravilla
[2023-10-12 12:00] VITALS: BP 139/84; PULSE 75; RESP 18; TEMP 37.3; O2SAT 95
--- NOTE | 2023-10-13 16:13 | PC.NURSE ---
reviewed pt urine culture and conformed with Dr. Dunn that pt is currently on the correct medication. no action needed at this time.
--- NOTE | 2023-10-14 15:28 | CARE MANAGER ---
Called and spoke with patient regarding recent discharge. She stated that she has started her new medication and is aware of scheduled f/u appts. No concerns voiced at time of call.
== END 2023-10-12 16:42 | disposition home or self-care (01) | DRG 439 ==
LOC: ER 21:37 → 2ND 21:41
PROVIDERS: Nurse Practitioner Family; Surgery; Admitting Provider Internal Medicine; Emergency Provider Student in an Organized Health Care Education/Training Program; PCP Physician Assistant; Visit Provider Internal Medicine
DX: K85.20 Alcohol induced acute pancreatitis without necrosis or infection (principal); L03.116 Cellulitis of left lower limb; E03.9 Hypothyroidism, unspecified; B18.2 Chronic viral hepatitis C; W19.XXXA Unspecified fall, initial encounter; I10 Essential (primary) hypertension; G89.29 Other chronic pain; M25.572 Pain in left ankle and joints of left foot; F11.10 Opioid abuse, uncomplicated
CPT/HCPCS: 36415; 71275; 73600; 73630; 74177; 80048; 80053; 80061; 80307; 81001; 83615; 83690; 83735; 84100; 84132; 84484; 84703; 85007; 85025; 85378; 85610; 85730; 87086; 87522; 93005; 99285; J0574; J2405; J2543; Q9967

== ENCOUNTER 2024-03-16 18:00 | Outpatient (CLI) | payer MEDICAID, SELFPAY ==
[2024-03-16 19:12] LABS: Basophils % 0.4 % (0.1-2.0); Eosinophils # 0.1 K/mm3 (0.0-0.4); Eosinophils % 1.7 % (0.1-12.0); Hematocrit 53.2 % (37.0-47.0); Hemoglobin 16.9 g/dL (12.2-16.2); Lymphocytes # 1.1 K/mm3 (0.7-4.5); Lymphocytes % 13.8 % (10-50); Mean Corpuscular HGB Conc 31.8 g/dL (31.8-35.4); Mean Corpuscular Hemoglobin 32.8 pg (27.0-31.2); Mean Corpuscular Volume 103.2 fl (81-99); Mean Platelet Volume 10.5 fl (7.4-10.4); Monocytes # 0.5 K/mm3 (0.1-1.0); Monocytes % 5.7 % (1.7-9.3); Neutrophils # 6.4 K/mm3 (1.8-7.8); Neutrophils % 78.3 % (37.0-80.0); Platelet Count 264 K/mm3 (142-424); Red Blood Count 5.15 M/mm3 (4.20-5.40); Red Cell Distribution Width 16.8 % (11.5-17.5); White Blood Count 8.1 K/mm3 (4.8-10.8)
[2024-03-16 19:47] LABS: Alanine Aminotransferase 33 U/L (12-78); Albumin Level 4.5 g/dl (3.5-5.0); Albumin/Globulin Ratio 1.7 (1.1-1.8); Alkaline Phosphatase 114 U/L (38-126); Anion Gap 19.2 mEq/L (5-15); Aspartate Amino Transferase 46 U/L (14-36); Bilirubin,Total 1.3 mg/dl (0.2-1.3); Blood Urea Nitrogen 5 mg/dl (7-17); Calcium 9.5 mg/dl (8.4-10.2); Carbon Dioxide 24 mmol/L (22.0-30.0); Chloride 99 mmol/L (98-107); Chol/HDL Ratio 2.9 (1-3.5); Cholesterol 170 mg/dl (140-200); Estimated Glomerular Filt Rate 91 ml/min (>60); GFR (African American) 110 ML/MIN (>60); Globulin 2.7 g/dL (1.3-3.2); Glucose 72 mg/dl (74-100); HDL Cholesterol 58 mg/dl (40-60); Potassium 3.2 mmoL/L (3.5-5.1); Sodium 139 mmol/L (136-145); Total Protein,Serum 7.2 g/dl (6.3-8.2); Triglycerides 94 mg/dl (30-150); VLDL Cholesterol 19 mg/dL (0-40)
[2024-03-16 19:58] LABS: Direct LDL Cholesterol 98.06 mg/dL (100-129)
[2024-03-16 20:23] LABS: Thyroid Stimulating Hormone 0.15 uIU/mL (0.465-4.68)
[2024-03-16 20:43] LABS: Vitamin B12 434 pg/mL (239-931)
[2024-03-16 21:07] LABS: Iron 151 ug/dL (37-170)
[2024-03-16 21:17] LABS: Total Iron Binding Capacity 406 ug/dL (265-497)
[2024-03-16 22:01] LABS: Ferritin 18.7 ng/ml (6.24-137)
[2024-03-17 14:57] LABS: HIV (1&2) Antibody Rapid NONREACTIVE
[2024-03-20 12:21] LABS: HCV Ab Reactive (Non Reactive)
== END 2024-03-16 23:59 | disposition home or self-care (01) ==
LOC: LAB.DROPOF 03-17 15:27
PROVIDERS: PCP Physician Assistant; Visit Provider Physician Assistant
DX: B19.20 Unspecified viral hepatitis C without hepatic coma (principal); M79.2 Neuralgia and neuritis, unspecified; E03.9 Hypothyroidism, unspecified; K85.20 Alcohol induced acute pancreatitis without necrosis or infection; Z68.21 Body mass index [BMI] 21.0-21.9, adult
CPT/HCPCS: 80050; 80053; 80061; 82306; 82607; 82728; 83540; 83550; 84443; 85025

== ENCOUNTER 2024-03-29 00:57 | Emergency (ER) | payer MEDICAID, SELFPAY ==
[2024-03-29] VITALS (14 sets, daily range): BP systolic 108–170; BP diastolic 72–113; PULSE 68–98; RESP 16–24; TEMP 36.7; O2SAT 95–100; BMI 23.1
--- NOTE | 2024-03-29 01:03 | ECG_ITS ---
APPROVED REPORT Exam: Resting ECG HR:102 bpm ECG Measurements Heart Rate 102 AXES UT 127 P 8 QRSd 89 QRS 125 QT 351 T 42 QTc 410 Conclusion SINUS TACHYCARDIA LEFT POSTERIOR FASCICULAR BLOCK [QRS AXIS > 109, INFERIOR Q] POSSIBLE ANTERIOR MYOCARDIAL INFARCTION , OF INDETERMINATE AGE [30 ms Q WAVE IN V3/V4, OR R < 0.2 mV IN V4] ABNORMAL ECG Electronically signed by : CLAUDIA TENORIO, 03/29/2024 21:41:35
[2024-03-29] MEDS: droPERidol 5MG/2ML VIAL 5 MG IV (01:22)
--- NOTE | 2024-03-29 01:23 | ED_ITS ---
Discharge Plan Disposition Patient Disposition: Home, Self-Care Prescriptions Prescriptions: No Action diclofenac sodium [Arthritis Pain (diclofenac)] 1 % gel 2 g TOPICAL QID PRN (Reason: Pain) Qty: 100 0RF amlodipine 5 mg tablet 5 mg PO DAILY 90 Days Qty: 90 0RF levothyroxine 125 mcg tablet 125 mcg PO AM Qty: 90 0RF pantoprazole 40 mg tablet,delayed release (DR/EC) 40 mg PO DAILY Qty: 90 0RF ergocalciferol (vitamin D2) 1,250 mcg (50,000 unit) capsule 50,000 unit PO QWEEK Qty: 12 2RF cholecalciferol (vitamin D3) 25 mcg (1,000 unit) capsule 25 mcg PO DAILY Qty: 90 0RF quetiapine 50 mg tablet 100 mg PO HS Qty: 60 2RF duloxetine 20 mg capsule,delayed release(DR/EC) 20 mg PO DAILY Qty: 90 0RF buprenorphine-naloxone 8-2 mg tablet, sublingual 1 tab SUBLINGUAL BID 3 Days Qty: 6 0RF Referrals Follow up/Referrals: Provider,Referral, MD [Primary Care Provider] - See instructions Activity Restrictions/Add. Instructions Additional Instructions/Restrictions: Please follow-up with your primary care provider. Please return to the emergency department if you develop any new or worsening symptoms or become concerned for your health. Recommend that you stop using methamphetamine. Recommend applying erythromycin ointment to the eye 3-4 times a day for 1 week to treat conjunctivitis. Clinical Impressions Clinical Impression: Delirium due to methamphetamine intoxication Conjunctivitis Qualifiers: Conjunctivitis type: acute Acute conjunctivitis type: unspecified Laterality: r ight Qualified Code(s): H10.31 - Unspecified acute conjunctivitis, right eye Instructions Patient Instructions: DI for Altered Mental Status Discharge ED Provider: Arpit Downing General Adult HPI General Chief complaint: Altered Mental Status Stated complaint: AMS Time Seen by Provider: 03/29/24 01:00 Mode of Arrival: EMS Source of Information: Patient and EMS Limitations: Altered Mental Status Description of Symptoms (Recalled from ER Triage Doc. by RN): Pt. presented to the ED with c/o altered mental status. Pt. admits to doing meth 2 days ago and is having hallcinations. History of Present Illness HPI narrative: 43-year-old female with history of alcohol abuse, hepatitis C, drug use, presents via EMS for hallucinations and altered mental status. Patient admits to doing methamphetamines but reports it was last about 2 days ago. She also admits to chronic alcohol use, reports that she had a few shots today. She is unable to provide effective history due to flight of ideas and responding to external stimuli. She has no history of psychiatric disease noted in the chart. Related Data Previous Rx's Medication Instructions Recorded buprenorphine 8 mg-naloxone 2 mg 1 tab sublingual BID 3 days #6 tabs 10/12/23 sublingual tablet diclofenac sodium 1 % topical gel 2 g topical QID PRN Pain #100 grams 11/03/23 (Arthritis Pain (diclofenac)) amlodipine 5 mg tablet 5 mg PO DAILY BP 90 days #90 tabs 03/17/24 ergocalciferol (vitamin D2) 1,250 50,000 unit PO QWEEK vitamin d 03/17/24 mcg (50,000 unit) capsule deficiency #12 caps levothyroxine 125 mcg tablet 125 mcg PO AM thyroid disease #90 03/17/24 tabs pantoprazole 40 mg tablet,delayed 40 mg PO DAILY gerd #90 tabs 03/17/24 release cholecalciferol (vitamin D3) 25 25 mcg PO DAILY #90 caps 03/20/24 mcg (1,000 unit) capsule duloxetine 20 mg capsule,delayed 20 mg PO DAILY Depression #90 caps 03/20/24 release quetiapine 50 mg tablet 100 mg (2 x 50 mg) PO HS sleep #60 03/20/24 tabs Allergies Allergy/AdvReac Type Severity Reaction Status Date / Time codeine Allergy Mild jitters Verified 03/16/24 15:37 NSAIDS (Non-Steroidal Allergy Mild Hives Verified 03/16/24 15:37 Anti-Inflamma [facility] Disclaimer: The information contained in this section may have been updated after the patient was seen, as this information can be updated by other users. Surgical History History of appendectomy Family History Other Family history of diabetes mellitus Family history of hypertension Family history of hypothyroidism Social History Smoking Status: Current every day smoker tobacco type: cigarettes packs per day: 1 alcohol intake: never substance use type: denies use current occupational status: unemployed Travel in the last 8 weeks: None household members: family ROS Obtained: Yes All systems reviewed & no additional complaints except as documented Physical Exam General General appearance: alert and appears intoxicated Head Head exam: atraumatic and normocephalic Eye Eye exam: Present normal appearance, PERRL and EOMI ENT ENT exam: Present normal oropharynx and normal external ear exam Neck Neck exam: Present normal inspection and full ROM Chest Chest inspection: Present normal inspection and symmetric chest wall rise; Absent tenderness Respiratory Respiratory exam: Present normal lung sounds bilaterally; Absent respiratory distress Cardiovascular Cardiovascular exam: Present normal rhythm and tachycardia Abdominal Exam Abdominal exam: Present soft; Absent distention, tenderness or guarding Extremities Exam Extremities exam: Present normal inspection; Absent edema or joint swelling Back Exam Back exam: Present normal inspection; Absent tenderness Neurological Exam Neurological exam: Present alert; Absent motor sensory deficit Psychiatric Psychiatric exam: Present agitated, anxious and other (Responding to internal stimuli) Skin Skin exam: Present warm, dry and normal color Lymphatic Lymphatic Findings: no adenopathy Medical Decision Making Medical Records Medical records reviewed: Yes I reviewed the patient's medical records. Brandan Inquiry Pt receiving controlled substance: No Brandan was queried for this patient: No Vital Signs: 03/29/24 00:57 03/29/24 01:15 03/29/24 01:36 Temperature 98.1 F Temperature Source Oral Pulse Rate 95 H 95 H Pulse Rate [Right Radial] 98 H Respiratory Rate 21 21 18 Blood Pressure 170/113 H 152/104 H Blood Pressure [Right Arm] 151/110 H Blood Pressure Mean 123 119 Blood Pressure Mean [Right Arm] 123 Blood Pressure Source Blood Pressure Source [Right Arm] Automatic Cuff Blood Pressure Position Blood Pressure Position [Right Arm] Supine 02 Sat by Pulse Oximetry 98 99 99 Oxygen Delivery Method Room Air Room Air Room Air 03/29/24 02:00 03/29/24 02:38 03/29/24 02:41 Temperature Temperature Source Pulse Rate 74 76 76 Pulse Rate [Right Radial] Respiratory Rate 24 22 23 Blood Pressure 130/91 H 119/84 119/84 Blood Pressure [Right Arm] Blood Pressure Mean Blood Pressure Mean [Right Arm] Blood Pressure Source Automatic Cuff Blood Pressure Source [Right Arm] Blood Pressure Position Supine Blood Pressure Position [Right Arm] 02 Sat by Pulse Oximetry 99 96 96 Oxygen Delivery Method Room Air 03/29/24 03:00 03/29/24 03:30 03/29/24 04:00 Temperature Temperature Source Pulse Rate 72 68 73 Pulse Rate [Right Radial] Respiratory Rate 20 20 18 Blood Pressure 117/80 130/80 118/72 Blood Pressure [Right Arm] Blood Pressure Mean Blood Pressure Mean [Right Arm] Blood Pressure Source Blood Pressure Source [Right Arm] Blood Pressure Position Blood Pressure Position [Right Arm] 02 Sat by Pulse Oximetry 96 98 97 Oxygen Delivery Method 03/29/24 04:30 03/29/24 05:00 03/29/24 05:30 Temperature Temperature Source Pulse Rate 69 68 68 Pulse Rate [Right Radial] Respiratory Rate 20 18 18 Blood Pressure 116/72 111/75 108/75 L Blood Pressure [Right Arm] Blood Pressure Mean Blood Pressure Mean [Right Arm] Blood Pressure Source Blood Pressure Source [Right Arm] Blood Pressure Position Blood Pressure Position [Right Arm] 02 Sat by Pulse Oximetry 95 95 95 Oxygen Delivery Method 03/29/24 06:12 Temperature Temperature Source Pulse Rate 76 Pulse Rate [Right Radial] Respiratory Rate 18 Blood Pressure 137/91 H Blood Pressure [Right Arm] Blood Pressure Mean Blood Pressure Mean [Right Arm] Blood Pressure Source Automatic Cuff Blood Pressure Source [Right Arm] Blood Pressure Position Supine Blood Pressure Position [Right Arm] 02 Sat by Pulse Oximetry 100 Oxygen Delivery Method Room Air Lab Data Lab results reviewed: Yes I reviewed the patient's lab results. Lab Results 03/29/24 01:12: WBC 9.5, RBC 5.63 H, Hgb 18.2 H, Hct 55.9 H, MCV 99.3 H, MCH 32.4 H, MCHC 32.6, RDW 16.1, Plt Count 190, MPV 9.8, Neut % (Auto) 83.1 H, Lymph % (Auto) 8.7 L, Blanco % (Auto) 6.7, Eos % (Auto) 0.6, Baso % (Auto) 1.0, Neut # (Auto) 7.9 H, Lymph # (Auto) 0.8, Blanco # (Auto) 0.6, Eos # (Auto) 0.1, Baso # (Auto) 0.1, Sodium 139, Potassium 3.3 L, Chloride 98, Carbon Dioxide 26, Anion Gap 18.3 H, BUN 15, Creatinine 1.80 H, Estimated Creat Clear 42, Estimated GFR 31 L, Est GFR ( Amer) 37 L, Glucose 125 H, Calcium 10.7 H, Total Bilirubin 2.3 H, AST 54 H, ALT 38, Alkaline Phosphatase 112, Troponin I < 0.01, Total Protein 8.7 H, Albumin 5.2 H, Globulin 3.5 H, Albumin/Globulin Ratio 1.5, Salicylates < 1.0 L, Acetaminophen < 10 L, Plasma/Serum Alcohol < 10 03/29/24 06:04: Sodium 134 L, Potassium 3.3 L, Chloride 101, Carbon Dioxide 28, Anion Gap 8.3, BUN 14, Creatinine 1.10 H D, Estimated Creat Clear 69, Estimated GFR 54 L, Est GFR ( Amer) 65 D, Glucose 103 H, Calcium 8.6 03/29/24 01:12 03/29/24 06:04 Orders (Tests/Meds): ED MEDICATIONS Discontinued Medications Generic Name Dose Route Start Last Admin Trade Name Freq PRN Reason Stop Dose Admin Droperidol 5 mg 03/29/24 01:14 03/29/24 01:22 Droperidol 5mg/2ml Vial IV 03/29/24 01:15 5 mg ONCE ONE Administration Erythromycin 1 gm 03/29/24 06:22 Erythromycin Base 1 Gm Oint...G. OP 03/29/24 06:23 ONCE ONE Lactated Ringer's 1,000 mls @ 999 mls/hr 03/29/24 01:24 03/29/24 02:32 Lactated Ringer's 1000 Ml Bag IV 03/29/24 02:24 999 mls/hr .Q1H1M ONE Administration Lactated Ringer's 1,000 mls @ 999 mls/hr 03/29/24 02:15 03/29/24 03:04 Lactated Ringer's 1000 Ml Bag IV 03/29/24 03:15 999 mls/hr .Q1H1M VU Administration ORDERS Category Date Time Status Acetaminophen Stat Lab 03/29/24 01:12 Completed BMP [Basic Metabolic Panel] Stat Lab 03/29/24 06:04 Completed Complete Blood Count Auto Diff Stat Lab 03/29/24 01:12 Completed Comprehensive Metabolic Panel Stat Lab 03/29/24 01:12 Completed Drug Screen,Urine Stat Lab 03/29/24 01:21 Ordered Ethyl Alcohol Stat Lab 03/29/24 01:12 Completed Salicylate Stat Lab 03/29/24 01:12 Completed Troponin I Stat Lab 03/29/24 01:12 Completed ECG Data Tracing #1: I reviewed this ECG and interpreted as documented below: Sinus tachycardia with rate of 102, no significant ST changes, QT within normal limits. ECG initial impression date: 03/29/24 ECG initial impression time: 01:03 Medical Decision Narrative: 43-year-old female with history of drug use, hepatitis, alcohol use presents with altered mental status, admits to meth use in the last 2 days.. History was obtained interactive discussion with patient, EMS. On arrival, patient is afebrile, hypertensive, satting appropriately on room air, moving all extremities spontaneously. Full physical exam performed and significant for patient appears to be responding to internal stimuli, pressured speech, anxious and agitated. Differential includes but is not limited to stimulant intoxication, alcohol withdrawal, overdose, psychiatric illness, intracranial pathology. Patient was given 5 mg of IV droperidol for acute psychosis, 2 L IV fluid bolus for symptomatic management and correction of underlying abnormalities. Workup initiated including CBC CMP and Tylenol level, salicylate level, UDS, EKG,. On re-evaluation, patient is sleeping comfortably. Laboratory workup independently interpreted by me and significant for SURINDER with creatinine 1.8, no significant leukocytosis, mild hypokalemia, negative Tylenol, negative salicylate. CT head imaging was considered, but deemed unnecessary due to no evidence of head trauma, known methamphetamine ingestion. Patient was placed in ED observation status for cardiac monitoring, reassessment of mental state, metabolization. On my interpretation of groundwater monitoring technician, patient remains in normal sinus rhythm with rate in the 60s. Repeat BMP was ordered and shows creatinine 1.1. Significantly improved after rehydration. On reassessment patient is sleeping calmly, easily aroused, reports significant improvement. No longer displaying any evidence of psychosis. She reports that her right eye has been bothering her for a few days, has had some discharge. He denies any contact usage. Given patient history, exam and workup, patient's presentation most likely represents acute meth intoxication and right eye conjunctivitis. Patient was given erythromycin ointment in the ER and instructed to use for the next week. Given given improvement in creatinine and mental status, patient was deemed appropriate for discharge with outpatient management. Observation status was discontinued and patient was discharged in stable condition. Total time in observation 4 hours. Procedures Risk/Benefits of Procedure(s) Were Explained: Yes Critical Care Critical Care Time Critical Care Time: Yes Attestation: On 03/29/24, the high probability of a clinically significant, sudden or life threatening deterioration of the following system(s) psychiatric required my full and direct attention, intervention and personal management. The time I documented below is in addition to time spent performing reported procedures but includes the following listed in this critical care notation. Total Time Total Critical Care Time: 35
--- NOTE | 2024-03-29 01:30 | PC.NURSE ---
Droperidol given slow IVP, left AC, IV blew when flushing Droperidol.
[2024-03-29 01:31] LABS: Basophils # 0.1 K/mm3 (0-0.2); Eosinophils # 0.1 K/mm3 (0.0-0.4); Eosinophils % 0.6 % (0.1-12.0); Hematocrit 55.9 % (37.0-47.0); Lymphocytes # 0.8 K/mm3 (0.7-4.5); Lymphocytes % 8.7 % (10-50); Mean Corpuscular HGB Conc 32.6 g/dL (31.8-35.4); Mean Corpuscular Hemoglobin 32.4 pg (27.0-31.2); Mean Corpuscular Volume 99.3 fl (81-99); Mean Platelet Volume 9.8 fl (7.4-10.4); Monocytes # 0.6 K/mm3 (0.1-1.0); Monocytes % 6.7 % (1.7-9.3); Neutrophils # 7.9 K/mm3 (1.8-7.8); Neutrophils % 83.1 % (37.0-80.0); Platelet Count 190 K/mm3 (142-424); Red Blood Count 5.63 M/mm3 (4.20-5.40); Red Cell Distribution Width 16.1 % (11.5-17.5); White Blood Count 9.5 K/mm3 (4.8-10.8)
[2024-03-29 01:34] LABS: Acetaminophen < 10 ug/ml (10-30); Alanine Aminotransferase 38 U/L (12-78); Albumin Level 5.2 g/dl (3.5-5.0); Albumin/Globulin Ratio 1.5 (1.1-1.8); Alkaline Phosphatase 112 U/L (38-126); Anion Gap 18.3 mEq/L (5-15); Aspartate Amino Transferase 54 U/L (14-36); Bilirubin,Total 2.3 mg/dl (0.2-1.3); Blood Urea Nitrogen 15 mg/dl (7-17); Calcium 10.7 mg/dl (8.4-10.2); Carbon Dioxide 26 mmol/L (22.0-30.0); Chloride 98 mmol/L (98-107); Creatinine Clearance Estimated 42 mL/min (50-200); Estimated Glomerular Filt Rate 31 ml/min (>60); GFR (African American) 37 ML/MIN (>60); Globulin 3.5 g/dL (1.3-3.2); Glucose 125 mg/dl (74-100); Potassium 3.3 mmoL/L (3.5-5.1); Salicylate < 1.0 mg/dL (2.0-20.0); Sodium 139 mmol/L (136-145); Total Protein,Serum 8.7 g/dl (6.3-8.2)
--- NOTE | 2024-03-29 01:36 | INFXCTL.NOTE ---
Pt. singing and praying, talking fast, rambling, seeing things . Able to state name, birthday, month year and where she is.
[2024-03-29 01:38] LABS: Ethyl Alcohol < 10 mg/dl (0-10); Hemoglobin 18.2 g/dL (12.2-16.2)
[2024-03-29 02:05] LABS: Troponin I < 0.01 ng/ml (0.00-0.034)
[2024-03-29] MEDS: LACTATED RINGERS 1000ML 1,000 ML 999 ML IV ×2 (02:32→03:04)
--- NOTE | 2024-03-29 03:01 | PC.NURSE ---
rounded on pt at this time. pt asleep in bed. vss- 117/80. HR-71. O2 sat 96%. RR 19. LR bolus infusing
--- NOTE | 2024-03-29 03:50 | PC.NURSE ---
rounded on pt at this time. pt asleep in bed. IVF finished and unhooked.
--- NOTE | 2024-03-29 04:41 | PC.NURSE ---
rounded on pt at this time. pt sleeping in bed on right side.
--- NOTE | 2024-03-29 05:31 | PC.NURSE ---
rounded on patient, patient continues to sleep, placed warm blanket on patient
[2024-03-29 06:12] LABS: Chloride 101 mmol/L (98-107)
[2024-03-29 06:13] LABS: Potassium 3.3 mmoL/L (3.5-5.1); Sodium 134 mmol/L (136-145)
--- NOTE | 2024-03-29 06:14 | PC.NURSE ---
0605 repeat BMP drawn from right arm IV. Pt. up to bathroom to void. no longer hallcinating. alert and cooperative. at this time.
[2024-03-29 06:16] LABS: Anion Gap 8.3 mEq/L (5-15); Blood Urea Nitrogen 14 mg/dl (7-17); Calcium 8.6 mg/dl (8.4-10.2); Carbon Dioxide 28 mmol/L (22.0-30.0); Creatinine Clearance Estimated 69 mL/min (50-200); Estimated Glomerular Filt Rate 54 ml/min (>60); GFR (African American) 65 ML/MIN (>60); Glucose 103 mg/dl (74-100)
--- NOTE | 2024-03-29 06:21 | PC.NURSE ---
breakfast brought to patient
[2024-03-29] MEDS: ERYTHROMYCIN BASE 1 GM OINT...G. OP (06:30)
--- NOTE | 2024-03-29 06:40 | PC.NURSE ---
Pt. was given a breakfast tray and she was able to eat some food. I spoke to patients mother . Pt's mother Criss will come to lease picker [place].
== END 2024-03-29 07:01 | disposition home or self-care (01) ==
PROVIDERS: Emergency Provider Emergency Medicine
DX: F15.121 Other stimulant abuse with intoxication delirium (principal); R41.82 Altered mental status, unspecified; E87.6 Hypokalemia; I44.5 Left posterior fascicular block; R00.0 Tachycardia, unspecified; H10.31 Unspecified acute conjunctivitis, right eye; F10.10 Alcohol abuse, uncomplicated; F17.210 Nicotine dependence, cigarettes, uncomplicated
CPT/HCPCS: 80048; 80053; 80320; 80329; 84484; 85025; 93005; 96361; 96374; 99285; G0480; J1790; J7120

== ENCOUNTER 2024-08-07 09:26 | Outpatient (CLI) | payer MEDICAID, SELFPAY ==
--- NOTE | 2024-08-07 09:26 | CT_ITS ---
FINAL REPORT CLINICAL HISTORY: rule out pancreatitis. abd pain COMPARISON: None FINDINGS: CT OF THE ABDOMEN AND PELVIS WITH CONTRAST Axial CT images of the abdomen and pelvis were obtained after the administration of IV contrast. Coronal and sagittal reformatted images were also obtained and reviewed. This study was performed with techniques to keep radiation doses as low as reasonably achievable (ALARA). Individualized dose reduction techniques using automated exposure control or adjustment of mA and/or kV according to the patient's size were employed. Abdomen: There is mild atelectasis in the lung bases.. The heart is normal in size. Diffuse fatty infiltration of the liver is present, mild. The spleen is unremarkable. No adrenal mass is present. The pancreas has an unremarkable appearance. There is a small less than 1 cm left renal cyst, with otherwise unremarkable kidneys. There is no evidence of hydronephrosis. The aorta is normal in caliber. There is no free fluid or adenopathy. No mass or abnormal fluid collection is seen. A small umbilical hernia containing fat is present. Pelvis: The appendix is not well-visualized. The urinary bladder is unremarkable. No inflammatory process is seen. There is no evidence of mass or adenopathy. There is no evidence of bowel obstruction. IMPRESSION: No evidence of acute intra-abdominal process. Mild fatty infiltration of the liver. Authenticated and ERN
[2024-08-07 10:08] LABS: Basophils # 0.1 K/mm3 (0-0.2); Basophils % 1.4 % (0.1-2.0); Eosinophils # 0.2 K/mm3 (0.0-0.4); Eosinophils % 2.1 % (0.1-12.0); Hematocrit 49.6 % (37.0-47.0); Hemoglobin 16.9 g/dL (12.2-16.2); Lymphocytes # 0.7 K/mm3 (0.7-4.5); Lymphocytes % 10.6 % (10-50); Mean Corpuscular HGB Conc 34.1 g/dL (31.8-35.4); Mean Corpuscular Hemoglobin 29.8 pg (27.0-31.2); Mean Corpuscular Volume 87.4 fl (81-99); Mean Platelet Volume 8.1 fl (7.4-10.4); Monocytes # 0.4 K/mm3 (0.1-1.0); Monocytes % 5.4 % (1.7-9.3); Neutrophils # 5.6 K/mm3 (1.8-7.8); Neutrophils % 80.5 % (37.0-80.0); Platelet Count 264 K/mm3 (142-424); Red Blood Count 5.67 M/mm3 (4.20-5.40); Red Cell Distribution Width 18.1 % (11.5-17.5); White Blood Count 6.9 K/mm3 (4.8-10.8)
[2024-08-07 10:11] LABS: Blood Urea Nitrogen 10 mg/dl (7-17); Estimated Glomerular Filt Rate 91 ml/min (>60); GFR (African American) 110 ML/MIN (>60)
[2024-08-07 10:40] LABS: Alanine Aminotransferase 14 U/L (12-78); Albumin Level 4.3 g/dl (3.5-5.0); Albumin/Globulin Ratio 1.7 (1.1-1.8); Alkaline Phosphatase 124 U/L (38-126); Amylase 43 U/L (30-110); Anion Gap 6.3 mEq/L (5-15); Aspartate Amino Transferase 24 U/L (14-36); Blood Urea Nitrogen 12 mg/dl (7-17); Calcium 9.2 mg/dl (8.4-10.2); Carbon Dioxide 31 mmol/L (22.0-30.0); Chloride 98 mmol/L (98-107); Estimated Glomerular Filt Rate 109 ml/min (>60); GFR (African American) 131 ML/MIN (>60); Globulin 2.5 g/dL (1.3-3.2); Glucose 96 mg/dl (74-100); Lipase 62 U/L (23-300); Potassium 3.3 mmoL/L (3.5-5.1); Sodium 132 mmol/L (136-145); Total Protein,Serum 6.8 g/dl (6.3-8.2)
[2024-08-07] MEDS: SODIUM CHLORIDE 0.9% 10ML SYR (RAD ONLY) 10 ML IV (10:58)
[2024-08-07] MEDS: IOPAMIDOL-370 (76%);100ML BOTTLE 75 ML IV (10:58)
== END 2024-08-07 23:59 | disposition home or self-care (01) ==
LOC: RAD 09:26
PROVIDERS: PCP Physician Assistant; Visit Provider Nurse Practitioner Family
DX: R10.9 Unspecified abdominal pain (principal); R11.2 Nausea with vomiting, unspecified; Z87.19 Personal history of other diseases of the digestive system; K59.09 Other constipation; F10.10 Alcohol abuse, uncomplicated
CPT/HCPCS: 36415; 74177; 80053; 82150; 82565; 83690; 84520; 85025; Q9967

== ENCOUNTER 2025-04-30 08:24 | Day surgery (SDC) | payer MEDICAID, SELFPAY ==
[2025-04-26 13:59] VITALS: BMI 26.2
[2025-04-30] MEDS: LACTATED RINGERS 1000ML 1,000 ML 50 ML IV (09:50)
[2025-04-30 09:56] LABS: Urine Pregnancy, HCG Qual. Negative (Negative)
[2025-04-30 09:57] VITALS: BP 137/95; PULSE 77; RESP 18; TEMP 36.2; O2SAT 98
--- NOTE | 2025-04-30 10:09 | EXP.HP ---
History of Present Illness *Admission Date: 04/30/25 *History of present illness: Mrs. Castillo is a 44-year-old female who is here for diagnostic colonoscopy. She does have a history of alcoholic pancreatitis with some chronic abdominal pain, nausea and vomiting. She also has some chronic constipation and bloating. She does report incomplete defecation with some rectal pain. The examination is deemed medically necessary for diagnostic colonoscopy. The patient has been seen, interviewed and examined prior to the procedure by both myself and the anesthesia provider. [facility] Disclaimer: The information contained in this section may have been updated after the patient was seen, as this information can be updated by other users. Medical History (Updated 04/30/25 @ 10:11 by Oliverio Campos II, MD) Endometriosis History of gastroesophageal reflux (GERD) Hypothyroid Hyperlipidemia Hypertension Surgical History H/O thyroidectomy History of bowel resection History of section History of appendectomy Family History Other Family history of diabetes mellitus Family history of hypertension Family history of hypothyroidism Social History Smoking Status: Current every day smoker tobacco type: cigarettes packs per day: 1 alcohol intake: never substance use type: denies use current occupational status: unemployed Travel in the last 8 weeks?: None household members: family Have you lived/traveled outside US in past 30 days?: No Contact w/someone who lives/traveled outside US past 30 days?: No Exposure to someone with infectious disease in past 14 days?: No Do you have a fever (greater than 100.4 F or 38 C)?: No Have you tested positive for COVID-19?: No Exposed to someone with COVID-19 in past 14 days?: No Do you have a sore throat?: No Do you have a cough?: No Do you have any weakness?: No Do you have any diarrhea?: No Are you experiencing any unusual bleeding?: No Do you have any muscle aches/pain?: No Do you have any abdominal pain?: No Are you experiencing loss of taste or smell?: No Other Medical History Have you received the Flu Vaccine for this season: No Have you received the Pneumonia Vaccine: No Review of Systems Review of Systems Review of systems (narrative): Negative *Cardiovascular Comments: Negative *Gastrointestinal Comments: Negative *Genitourinary Comments: Negative *Musculoskeletal Comments: Negative *Neurologic Comments: Negative Meds Home Medications and Allergies Home Medications ?Medication ?Instructions ?Recorded ?Confirmed ?Type buprenorphine 8 mg-naloxone 2 mg 1 tab sublingual BID 3 days #6 tabs 10/12/23 04/26/25 Rx sublingual tablet diclofenac sodium 1 % topical gel 2 g topical QID PRN Pain #100 grams 11/03/23 04/26/25 Rx (Arthritis Pain (diclofenac)) ergocalciferol (vitamin D2) 1,250 50,000 unit PO QWEEK vitamin d 03/17/24 04/26/25 Rx mcg (50,000 unit) capsule deficiency #12 caps levothyroxine 125 mcg tablet 125 mcg PO AM thyroid disease #90 03/17/24 04/26/25 Rx tabs duloxetine 20 mg capsule,delayed 20 mg PO DAILY Depression #90 caps 03/20/24 04/26/25 Rx release quetiapine 50 mg tablet 100 mg (2 x 50 mg) PO HS sleep #60 03/20/24 04/26/25 Rx tabs amlodipine 5 mg tablet See Rx Instructions .Route 06/22/24 04/26/25 Rx .COMPLEX #30 tabs cholecalciferol (vitamin D3) 25 See Rx Instructions .Route 06/22/24 04/26/25 Rx mcg (1,000 unit) tablet .COMPLEX #30 tabs pantoprazole 40 mg tablet,delayed See Rx Instructions .Route 06/22/24 04/26/25 Rx release .COMPLEX #30 tabs polyethylene glycol 3350 17 17 g PO DAILY 04/04/25 04/26/25 History gram/dose oral powder (Miralax) psyllium husk 3.4 gram/5.4 gram 1 tbsp PO DAILY 04/04/25 04/26/25 History oral powder (Metamucil) sodium,potassium,mag sulfates 17.5 See Rx Instructions PO .COMPLEX 04/26/25 Rx gram-3.13 gram-1.6 gram oral soln #354 mL (Suprep Bowel Prep Kit) New Prescriptions to Start Prescriptions: Allergies Allergy/AdvReac Type Severity Reaction Status Date / Time codeine Allergy Mild jitters Verified 04/30/25 09:55 NSAIDS (Non-Steroidal Allergy Mild Hives Verified 04/30/25 09:55 Anti-Inflamma Exam Data for Last 24 hours Vital signs and Labs for Last 24 Hours: Laboratory Results - last 24 hr 04/30/25 09:45: Urine HCG, Qual Negative *Routine HEENT Exam Head: Present normocephalic Eye: Present EOMI and PERRL ENT: Present mucous membranes moist *Routine Neck Exam Neck: Present supple *Routine Respiratory Exam Respiratory: Present CTA bilaterally *Routine Cardiovascular Exam Cardiovascular: Present RRR *Routine Abdominal Exam Abdominal: Present soft and normoactive bowel sounds; Absent tenderness *Routine Rectal Exam Rectal:: deferred *Routine Genitalia Exam Genitalia:: deferred *Routine Extremities Exam Extremities: Absent cyanosis, clubbing or edema *Routine Skin Exam Skin: Present warm; Absent rash *Routine Neurological Exam Neurological: Present alert and oriented X3 Assessment and Plan *Assessment and plan (1) Chronic constipation: Status: Acute Category: Medical Code(s): K59.09 - Other constipation (2) Incomplete defecation: Status: Acute Category: Medical Code(s): R15.0 - Incomplete defecation (3) Abdominal pain: Status: Acute Category: Medical Code(s): R10.9 - Unspecified abdominal pain Plan A/P: 1. Chronic constipation/incomplete defecation with abdominal pain is the preprocedural diagnosis. The patient will be anesthetized/sedated using MAC sedation. The patient has been seen and examined. Cardiac and lung assessment prior to the examination is stable. Proceed with planned diagnostic colonoscopy.
--- NOTE | 2025-04-30 10:38 | P.PNANES_ITS ---
[facility] Disclaimer: The information contained in this section may have been updated after the patient was seen, as this information can be updated by other users. Medical History (Updated 04/30/25 @ 10:11 by Oliverio Campos II, MD) Endometriosis History of gastroesophageal reflux (GERD) Hypothyroid Hyperlipidemia Hypertension Surgical History H/O thyroidectomy History of bowel resection History of section History of appendectomy Family History Other Family history of diabetes mellitus Family history of hypertension Family history of hypothyroidism Social History Smoking Status: Current every day smoker tobacco type: cigarettes packs per day: 1 alcohol intake: never substance use type: denies use current occupational status: unemployed Travel in the last 8 weeks?: None household members: family Have you lived/traveled outside US in past 30 days?: No Contact w/someone who lives/traveled outside US past 30 days?: No Exposure to someone with infectious disease in past 14 days?: No Do you have a fever (greater than 100.4 F or 38 C)?: No Have you tested positive for COVID-19?: No Exposed to someone with COVID-19 in past 14 days?: No Do you have a sore throat?: No Do you have a cough?: No Do you have any weakness?: No Do you have any diarrhea?: No Are you experiencing any unusual bleeding?: No Do you have any muscle aches/pain?: No Do you have any abdominal pain?: No Are you experiencing loss of taste or smell?: No [facility] Anesthesia Checklist Patient Identification Patient Identification: Verbal (Name & ) Structural Data Admitted From: Home Planned Operative Procedure/s: colonoscopy Consent for Planned Operative Procedure(s) Verified: Yes Airway Assessment Mallampati Score:: Class II C-Spine Mobility Assessed: Yes TMJ Mobility Assessed: Yes Dentition: Dentures-good fit Neurological Assessment Level of Consciousness: Awake, Alert and Appropriate Anesthesia Plan Anesthesia Risk discussed: Yes Anesthesia Plan: Verified ASA Class: II Anesthesia Type: MAC
--- NOTE | 2025-04-30 10:50 | P.PCN_ITS ---
[facility] Procedure Note Date: 04/30/25 Time: 11:06 Procedure Note:: Colonoscopy Procedure Report: Colonoscopy with cold snare polypectomy Endoscopist: Oliverio Campos II, MD Referring physician: Mela Aquino PA-C Date of Procedure: April 30, 2025 Equipment: Olympus [id number] adult colonoscope Sedation: MAC sedation Indication: Mrs. Castillo is a 44-year-old female who is here for diagnostic colonoscopy. She does have chronic constipation with incomplete defecation and sometimes longer periods of time in the bathroom. She does have a lot of bloating, gassiness and generalized abdominal pain. She also reports nausea. She has had some minor weight loss. She does state that her maternal uncle had colon cancer. She reports no rectal bleeding. She did have partial bowel resection in 2013. This is her first colonoscopy. Procedure: Prior to the procedure, a history and physical exam was performed, and patient's medications and allergies were reviewed. The risks, benefits and alternatives of the sedation and procedure were discussed with the patient. All questions were answered and informed consent was obtained. The patient was brought to the procedure room. Patient identification and proposed procedure were verified by the physician and the nurse. The patient was placed in a left lateral decubitus position and the scope was passed under direct vision. Throughout the procedure, the patient's blood pressure, pulse, and oxygen saturations were monitored continuously. The colonoscopy was accomplished without difficulty. The patient tolerated the procedure well. Findings: On digital rectal examination there was normal rectal tone. There were no external hemorrhoids. The colonoscope was introduced through the anal canal to the rectum and advanced to the cecum. The ileocecal valve and appendiceal orifice were identified. The scope was advanced a short distance into the ileum which appeared grossly normal. The scope was then withdrawn into the colon. There was a single 5 mm sigmoid colon polyp removed via cold snare polypectomy. The remaining cecum, ascending, transverse, descending, sigmoid and rectum were grossly normal. There were no other mucosal abnormalities identified. Upon retroflexion within the rectum there were grade 1-2 internal hemorrhoids. The preparation was fair throughout with Tecumseh Preparation Score of 7 out of 9. There was some plant residue in the cecum and left colon that could not be suctioned. The cecal time was 12 minutes. Impression: 1. Sigmoid colon polyp (5 mm) Plan: I will follow-up the polyp histology. I will place the patient on Linzess to see if she gets some improvement of her bowel function.
[2025-04-30 11:08] VITALS: BP 85/50; PULSE 61; RESP 17; TEMP 36.1; O2SAT 98
[2025-04-30 11:18] VITALS: BP 80/44; PULSE 68; RESP 18; TEMP 36.1; O2SAT 96
[2025-04-30 11:28] VITALS: BP 112/71; PULSE 72; RESP 17; TEMP 36.1; O2SAT 99
[2025-04-30 11:38] VITALS: BP 110/79; PULSE 70; RESP 18; TEMP 36.1; O2SAT 97
== END 2025-04-30 11:40 | disposition home or self-care (01) ==
PROVIDERS: PCP Physician Assistant; Visit Provider Internal Medicine Gastroenterology
PROC: 0DJD8ZZ Inspection of Lower Intestinal Tract, Via Natural or Artificial Opening Endoscopic (ICD-10-PCS; CPT 45378; principal; 2025-04-30 11:00)
DX: K63.5 Polyp of colon (principal); K21.9 Gastro-esophageal reflux disease without esophagitis; E03.9 Hypothyroidism, unspecified; E78.5 Hyperlipidemia, unspecified; I10 Essential (primary) hypertension; F17.210 Nicotine dependence, cigarettes, uncomplicated; Z79.890 Hormone replacement therapy; Z88.5 Allergy status to narcotic agent; Z88.6 Allergy status to analgesic agent; Z79.899 Other long term (current) drug therapy
CPT/HCPCS: 45385; 81025; J2003; J2704; J7120

== ENCOUNTER 2025-05-16 08:12 | Outpatient (CLI) | payer MEDICAID, SELFPAY ==
--- NOTE | 2025-05-16 | CA_ITS ---
APPROVED REPORT EXAM: Comprehensive 2D, Doppler, and color-flow Echocardiogram Life Consultant: Merissa Arana CRT Ht: 5 ft 10 in Wt: 149lbs BSA: 1.84 BP: 136/86 mmHg Indications: Shortness of Breath, Hypertension/HDD, Smoker, throidectomy, hep c 2D Dimensions LA Volume 30.30 mL LA Volume Index 16.00 mL/m2 (M/F) 16-34 M-Mode Dimensions RVDd 2.90 cm (0.9-2.6) LA Diam 3.79 cm (1.9-4.0) LVDd 4.63 cm (3.5-5.7) LVDs 2.94 cm (3.5-5.7) IVSd 1.65 cm (0.6-1.1) PWd 0.89 cm (0.6-1.1) EF (Teich) 66.30% FS 36.50% EDV (Teich) 98.80 mL TAPSE 2.02 (<1.7) ESV (Teich) 33.30 mL LV Diastology E Decel Time 243 (160-240 msec) E/A Ratio 0.78 MED A' 8.90 cm/s LAT A' 12.00 cm/s Aortic Valve AO Peak GR. 6.60 mmHg Mitral Valve MV E Max Kings. 77.0 (40-130 cm/s) MV A Velocity 99.0 (40-130 cm/s) E/A Ratio 0.78 MV PHT 71.0 ms Pulmonary Valve PV Peak Velocity 88.0 (50-150 cm/s) Tricuspid Valve TR P. Velocity 190.00 cm/s RAP Estimate 10.00 mmHg RVSP 24.40 mmHg Left Ventricle The left ventricle is normal size. Left ventricular systolic function is normal. The left ventricular ejection fraction is within the normal range. Proximal septal thickening is present. There is normal LV segmental wall motion. The left ventricular diastolic function is normal. LVEF is 55% Right Ventricle The right ventricle is normal size. The right ventricular systolic function is normal. Atria The left atrium size is normal. The right atrium size is normal. There is no color Doppler evidence of interatrial shunt. Aortic Valve The aortic valve opens well. There is no hemodynamically significant aortic valvular stenosis. No aortic regurgitation is present. Mitral Valve The mitral valve is normal in structure. No evidence of mitral valve stenosis. Trace mitral regurgitation is present. Tricuspid Valve The tricuspid valve leaflets are thin and pliable. Trace tricuspid regurgitation. RVSP is normal. Pulmonic Valve The pulmonary valve is grossly normal in structure. Trace pulmonic valve regurgitation is present. Great Vessels The aortic root is normal in size. IVC is normal in size and collapses >50% with inspiration. Pericardium There is no pericardial effusion. Other Information Study Quality: Fair Conclusion Normal biventricular systolic function. No significant valvular stenosis or regurgitation. Electronically signed by : Luz Ross MD 05/16/2025 12:50:46
--- OUTSIDE RECORDS SUMMARY | 2025-05-16 08:15 | XMS_ITS | Encounter Summary ---
Author Organization [facility] Address [address] [place] [address] Care Team Providers Care Grain Receiver Name Role Phone Mela Aquino MARGARET Primary Care Provider [phone] Encounter Details Date Type Department Care Team (Late st Contact Info) Description 01/11/2025 Results Follow-Up [facility] [address] [address] Elizabeth Valenzuela APRN [address] [id number] Social History Tobacco Use Types Packs/Day Years Used Date Smoking Tobacco: Every Day Cigarettes Smokeless Tobacco: Never Alcohol Use Standard Drinks/Week Comments Yes 0 (1 standard drink = 0.6 oz pur e alcohol) Comments No Sex and Gender Information Value Date Recorded Sex Assigned at Not on file Legal Sex Female 1:15 PM EDT Gender Identity Not on file Sexual Orientation Not on file documented as of this encounter Progress Notes * Elizabeth Valenzuela APRN - 01/11/2025 12:55 PM EDT UA normal/negative for infection documented in this encounter Plan of Treatment Upcoming Encounters Date Type Department Care Team (Late st Contact Info) Description 11/05/2025 10:15 AM EST Office Visit [facility] [address] [address] Elizabeth Valenzuela, GRANITE CUTTER [address] [facility] [address] [place] [address] documented as of this encounter Visit Diagnoses Not on filedocumented in this encounter Care Teams Grain Receiver Relationship Specialty Start Date End Date Mela Aquino PA [address] [place] [address] PCP - General Physician Rn Documentation 09/28/24 documented as of this encounter
--- OUTSIDE RECORDS SUMMARY | 2025-05-16 08:15 | XMS_ITS | Clinical Summary ---
Author Organization [facility] Address [address] [place] [address] Care Team Providers Care Grain Sacker Name Role Phone Mela Aquino Primary Care Provider [phone] Allergies Active Allergy Reactions Criticality Noted Date Comments Codeine Other (See Comments) Low 12/30/2020 Latex Itching,Rash Low 11/02/2024 Nsaids Unknown - Low Severity Low 07/23/2016 She reports hives/swelling Propoxyphene 07/23/2016 Medications pantoprazole (PROTONIX) 40 MG EC tablet Take 1 tablet by mouth Daily. 07/08/2016 Active levothyroxine (SYNTHROID, LEVOTHROID) 125 MCG tablet Take 1 tablet by mouth Every Morning. Active QUEtiapine (SEROquel) 50 MG tablet Take 1 tablet by mouth Every Night. 09/22/2024 Active vitamin D (ERGOCALCIFEROL ) 1.25 MG (81527 UT) capsule capsule Take 1 capsule by mouth Every 7 (Seven) Days. 10/06/2024 Active DULoxetine (CYMBALTA) 20 MG capsule Take 1 capsule by mouth Daily. 09/22/2024 Active buprenorphine-n aloxone (SUBOXONE) 8-2 MG per SL tablet Place 1 tablet under the tongue Daily. Active Cholecalciferol 50 MCG (2000 UT) tablet Take 1 tablet every day by oral route as directed for 30 days, for Vitamin D deficiency. 09/14/2024 Active D3-1000 25 MCG (1000 UT) tablet 09/07/2024 Active amLODIPine (NORVASC) 5 MG tablet Take 1 tablet by mouth Daily. Active Social History Tobacco Use Types Packs/Day Years Used Date Smoking Tobacco: Every Day Cigarettes Smokeless Tobacco: Never Tobacco Cessation:Ready to Q uit: Not Asked; Counseling Given: No Alcohol Use Standard Drinks/Week Comments Yes 0 (1 standard drink = 0.6 oz pur e alcohol) Comments No Sex and Gender Information Value Date Recorded Sex Assigned at Not on file Legal Sex Female 1:15 PM EDT Gender Identity Not on file Sexual Orientation Not on file Last Filed Vital Signs Vital Sign Reading Time Taken Comments Blood Pressure 118/70 01/10/2025 2:37 PM EDT Pulse 84 04/22/2015 4:02 PM EDT Temperature - - Respiratory Rate 16 01/10/2025 2:37 PM EDT Oxygen Saturation - - Inhaled Oxygen Concentration - - Weight 76.7 kg (169 lb) 01/10/2025 2:37 PM EDT Height 172.7 cm (5' 8 ) 01/31/2015 9:55 AM EDT Body Mass Index 25.7 01/31/2015 9:55 AM EDT Plan of Treatment Upcoming Encounters Date Type Department Care Team (Late st Contact Info) Description 11/05/2025 10:15 AM EST Office Visit [facility] [address] [address] Bismark Hamilton, FACE WORKER [address] [address] Health Maintenance Due Date Last Done Comments Pneumococcal Vaccine 0-49 (1 of 2 - PCV) 12/17/1998 ANNUAL PHYSICAL 07/23/2016 MAMMOGRAM 2019 COVID-19 Vaccine (1 - 2023- season) 2024 COLOGUARD 12/17/2024 COLON CANCER SCREENING 5 YEAR SIGMOIDOSCOPY 12/17/2024 COLONOSCOPY 12/17/2024 COLORECTAL CANCER SCREENING 12/17/2024 CT COLONOGRAPHY 12/17/2024 FECAL OCCULT BLOOD TEST 12/17/2024 FIT Testing (1 year) 12/17/2024 TDAP/TD VACCINES (2 - Td or Tdap) 04/10/2025 015 INFLUENZA VACCINE 07/04/2025 Annual Gynecologic Pelvic and Breast Exam 11/03/2025 11/02/2024 PAP SMEAR 11/02/2027 11/02/2024 HEPATITIS C SCREENING Completed 01/15/2014 Procedures Procedure Name Priority Date/Time Associated Diagnosis Comments LIQUID-BASED PAP SMEAR WITH HPV GENOTYPING REGARDLESS OF INTERPRETATION, [facility] ([facility]RIEL,[facility]) Routine 11/02/2024 2:54 PM EST Encounter for well woman exam with routine gynecological exam HCV RT-PCR,QUANT(NON-GR APH) Routine 01/15/2014 4:23 PM EDT from Last 3 Months or Most Recently Relevant to Health Maintenance Results * LIQUID-BASED PAP SMEAR WITH HPV GENOTYPING REGARDLESS OF INTERPRETATION (GABRIEL,COR,MAD) (11/02/2024 2:54 PM EST) Reference Lab Report [facility] [address] [place] [address] or [phone] Darin Blair M.D., Ticket Printer And Tagger PATIENT NAME LABORATORY NO. KARON SMITH [id number] AGE SEX SSN CLIENT REF # BISMARK HAMILTON FACE WORKER [facility] [id number] 1980 F [id number] GYNECOLOGY REQUESTING Akbar. ATTENDING M.D. COPY TO. [address] [place] [address] [address] [place] [address] DATE COLLECTED DATE RECEIVED DATE REPORTED 11/02/2024 11/02/2024 11/04/2024 ThinPrep Pap with Cytyc Imaging DIAGNOSIS: Negative for intraepithelial lesion or malignancy Multiple factors can influence accuracy of Pap tests; therefore, screening at regular intervals is necessary for early cancer detection. COMMENT: MICRO-ORGANISMS MORPHOLOGICALLY CONSISTENT WITH TRICHOMONAS VAGINALIS IS PRESENT. Professional interpretation rendered by Darin Blair M.D., F.C.A.P. at [facility], [place], [address] [place] [address]. SPECIMEN ADEQUACY: SATISFACTORY FOR EVALUATION Transformation zone is present. SOURCE OF SPECIMEN: CERVICAL/ENDOCERVI CRAIG SLIDES: 1 CLINICAL HISTORY: Encounter for well woman exam with routine gynecological exam HPV HR-HPV POOL: Negative The Aptima HPV assay is an in vitro nucleic acid amplification test for the qualitative detection of E6/E7 viral messenger RNA from 14 high risk types of HPV in cervical specimens. The high risk HPV types detected include: 16, 18, 31, 33, 35, 39, 45, 51, 52, 56, 58, 59, 66, 68 Chlamydia / Gonorrhea CHLAMYDIA TRACHOMATIS: Negative NEISSERIA GONORRHOEAE: Negative The Aptima Combo 2 assay is a target amplification nucleic acid probe test that utilizes target capture for the in vitro qualitative detection and differentiation of ribosomal RNA from Chlamydia trachomatis and Neisseria gonorrhoeae to aid in the diagnosis of chlamydial and gonococcal disease using the Erskine system. Trichomonas TRICHOMONAS VAGINALIS: Positive The Aptima Trichomonas vaginalis assay is an in vitro qualitative nucleic acid amplification test for the detection of ribosomal RNA to aid in the diagnosis of trichomoniasis. PIVOT MAKER: NETO GANNON(ASCP) REVIEWED, DIAGNOSED AND ELECTRONICALLY SIGNED BY: Darin Blair M.D., F.C.A.P. CPT CODES: 41943, 40045, 53144, 56884, [id number], [id number] 11/04/2024 9:50 AM EST [facility] ThinPrep Vial Cervix uteri structure / Unknown Collection / Unknown 11/02/2024 2:54 PM EST 11/02/2024 2:54 PM EST Bismark Hamilton APRN PATHOLOGY/CYTOLOGY ORDERABLE S Final Result [facility]
[address] [place] [address], * HCV RT-PCR,Quant(Non-Graph) (01/15/2014 4:23 PM EDT) Hepatitis C Quantitation HCV Not Detected IU/mL [facility] Test Information See comments [facility] Comment: The quantitative range of the assay is 15 IU/mL to 100 million IU/mL using JD(R) TaqMan(R) HCV test, v 2.0. The limit of detection (LOD) and lower limit of quantification (LLOQ) for this assay is 15 IU/mL. Results less than the quantitative range of the assay will be reported as HCV RNA detected, less than 15 IU/mL . Blood specimen (specimen) 01/15/2014 4:23 PM EDT Narrative [facility] - 01/18/2014 1:06 AM EDT Specimen Type: Blood PERFORMED AT: [facility] [id number] WASH CREW PERSON: Tariq Coffey MD PHONE: [phone] us Kwame Dominguez MD LAB BLOOD ORDERABLES Final Resul t [facility] [address] [place] [address], from Last 3 Months or Most Recently Relevant to Health Maintenance Insurance [facility] MEDICAID Care Teams Grain Sacker Relationship Specialty Start Date End Date Mela Aquino PA [address] [place] [address] PCP - General Physician Drywaller 09/28/24
== END 2025-05-16 23:59 | disposition home or self-care (01) ==
LOC: RT 08:13
PROVIDERS: PCP Physician Assistant; Visit Provider Physician Assistant
DX: E78.5 Hyperlipidemia, unspecified (principal); F17.200 Nicotine dependence, unspecified, uncomplicated; E89.0 Postprocedural hypothyroidism; B19.20 Unspecified viral hepatitis C without hepatic coma; R06.09 Other forms of dyspnea; R06.02 Shortness of breath
CPT/HCPCS: 93306